=== PATIENT | female | born 1990 | race Caucasian/White ===

== ENCOUNTER 2019-05-08 14:14 | Observation (INO) | payer BC, SELFPAY ==
--- NOTE | ~2019-05-08 | XR_ITS ---
XR chest 2V DATE: 05/08/2019 15:46 INDICATION: Postoperative fever and pain. Cystoscopy yesterday. TECHNIQUE: AP and lateral views COMPARISON: 07/30/2018 2 view chest FINDINGS: Normal heart size. No hilar or mediastinal enlargement. No pulmonary infiltrate or consolid ation, pleural effusion or pulmonary vascular congestion or pneumothorax is detected. IMPRESSION: No active cardiopulmonary disease Reviewed, dictated and finalized at location A. ATION NURSE
--- NOTE | ~2019-05-08 | XR_ITS ---
EXAMINATION: XR abdomen/kub 1V EXAM DATE: 05/08/2019 18:02 INDICATION: Evaluate stent. TECHNIQUE: Frontal projection of the upper abdomen, frontal projection lower abdomen/pelvis for inter pretation. Comparison is made to prior examination from 05/07/2019. FINDINGS: There has been interval insertion of a right-sided double-J ureteral stent, projecting ove r expected position. Possible identification of right calyceal 4 mm stone, finding indicated. There i s bowel gas overlying the renal contours. Cholecystectomy clips. Nonobstructive bowel gas pattern. IMPRESSION: Right ureteral stent in position. Reviewed, dictated and finalized at location A. ACE MECHANIC HELPER
[2019-05-08 14:28] VITALS: BP 155/98; PULSE 133; RESP 19; TEMP 39.8; O2SAT 98
--- NOTE | 2019-05-08 14:52 | ED.ABDPAIN ---
HPI - Abdominal Pain General Chief Complaint: Abdominal Pain Stated Complaint: post op pain/fever Time Seen by Provider: 05/08/19 14:32 Source: patient and old records reviewed Mode of arrival: ambulatory Limitations: no limitations History of Present Illness HPI narrative: The pt is a 28 y/o female who presents to the ED c/o right flank pain. Pt states that the pain radiates to the ABD and right hip. Old records indicate pt has previous PMHx of kidney stones with extraction. Per old records, pt was diagnosed with a 2 mm right UPJ stone. Pt had a fever in the ER, so she received a gram of Ceftriaxone. Pt went to the OR soon after to receive a ureteral stent. Pt then received Bactrim and Oxycodone upon discharge from the OR. She states that she took Bactrim yesterday and today. She states that she experienced some vomiting yesteday. Pt states that she then began to experience the pain again after taking Bactrim today. Pt took Motrin and Oxycodone without relief. Pt reports chills, dysuria, rhinorrhea, and head pressure. She denies numbness/tingling, body aches, cough, CP, and vision changes. Pt notes that she takes medication for anxiety and HTN. Pt has previous history of cholecystectomy, shoulder repair, tonsillectomy, and myringotomy tubes. MD elicited complaint: abdominal pain Pertinent past history: kidney stones Pain Consistency: constant Location: R flank Radiation: other (Right hip, abdomen) Associated symptoms: vomiting, fever, chills and other (Rhinorrhea, head pressure) Treatments prior to arrival: NSAIDs (Motrin) and prescription analgesics (Oxycodone) Related Data Home Medications Medication Instructions Recorded Confirmed oxycodone 05/08/19 Allergies Allergy/AdvReac Type Severity Reaction Status Date / Time No Known Allergies Allergy Verified 05/08/19 14:31 Review of Systems Review of Systems: All systems reviewed & are unremarkable except as noted in HPI and below Constitutional: Constitutional: Reports chills and Reports fever(s) Eyes: Eyes: Denies change in vision ENT: Reports nasal discharge (Rhinorrhea) Cardiovascular: Cardiovascular: Denies chest pain Respiratory: Respiratory: Denies cough Gastrointestinal: Gastrointestinal: Reports vomiting Genitourinary: Genitourinary: Reports flank pain (Right) Musculoskeletal: Musculoskeletal: Denies myalgias Neurologic: Denies numbness, Denies tingling and Reports other (Head pressure) [facility] Past Medical History Medical History (Updated 05/08/19 @ 17:55 by Gary Hernandez MD) Anxiety Closed fracture of phalanx of right little finger Depression HTN (hypertension) Kidney stones Right arm fracture UTI (urinary tract infection) Surgical History Surgical History (Updated 05/08/19 @ 15:04 by José Miguel Landaverde) H/O shoulder surgery Right shoulder repair History of cholecystectomy History of extraction of renal calculus Hx of tonsillectomy Myringotomy tube status S/P ureteral stent placement Social History Social History (Updated 05/08/19 @ 15:03 by José Miguel Landaverde) Smoking status: Never smoker Gender identity (if verbalized by the patient): Female Comments PCP: Dr. Loomis Exam Narrative: Exam Narrative: GENERAL: Uncomfortable appearing, morbidly obese, and in mild distress. HEAD: Normocephalic, atraumatic. ENT: Mucous membranes moist. No pharyngeal erythema or tonsillar exudate, no postnasal drip noted. NECK: Supple. CHEST: Clear to auscultation. No respiratory distress. HEART: Tachycardic and regular. Normal peripheral pulses. ABDOMEN: Soft, mild right mid abdominal tenderness superior to the iliac crest and inferior to the rib cage without guarding, nondistended. No CVA tenderness. Back: No midline tenderness of thoracic or lumbar spine. No SI joint tenderness. No reproducible paraspinal muscular tenderness or spasm. EXTREMITIES: Normal range of motion. No edema. SKIN: Warm, dry, no rash. NEURO: Alert and oriented x3
[2019-05-08 15:26] LABS: Basophils Absolute Auto 0.1 K/mm3 (0.0-0.1); Basophils Percent Auto 0.8 % (0.2-1.2); Eosinophils Absolute Auto 0.1 K/mm3 (0-0.3); Eosinophils Percent Auto 0.8 % (0-4.4); Hemoglobin 13.1 g/dL (12.0-15.0); Immature Granulocyte Absolute 0.03 K/mm3 (0.00-0.031); Immature Granulocyte Percent A 0.3 % (0-0.5); Lymphocytes Absolute Auto 0.33 K/mm3 (0.9-3.2); Lymphocytes Percent Auto 3.1 % (18.3-44.2); Mean Corpuscular Hemoglobin 27.9 pg (26-34); Mean Corpuscular Volume 87.4 fl (80-100); Mean Platelet Volume 9.2 fl (7.4-10.4); Monocytes Absolute Auto 0.3 K/mm3 (0.1-0.6); Monocytes Percent Auto 2.8 % (2.6-8.5); Neutrophils Absolute Auto 9.8 K/mm3 (1.3-6.7); Neutrophils Percent Auto 92.2 % (45.5-73.1); Platelet Count Result 356 k/mm3 (150-375); Red Blood Count 4.69 M/mm3 (4.2-5.4); Red Cell Distribution Width 13.8 % (11.5-14.5); White Blood Count 10.7 K/mm3 (4.5-10.0)
[2019-05-08] MEDS: HYDROMORPHONE HCL 1 MG/ML INJ IV PUSH ×3 (15:32→19:51)
[2019-05-08] MEDS: ONDANSETRON INJ 4 MG/2 ML VIAL (15:33)
--- NOTE | 2019-05-08 15:33 | PC.NURSE ---
vrbo from ROBIN franco for zofran 4 mg ivp
[2019-05-08 15:36] LABS: Lactic Acid Reflex 2.2 mmol/L (0.7-2.1)
[2019-05-08 15:37] LABS: Blood Urea Nitrogen 13 mg/dL (7-17); Calcium 8.8 mg/dL (8.4-10.2); Carbon Dioxide 26 mmol/L (22-30); Chloride 100 mmol/L (98-107); Estimated Glomerular Filt Rate > 60; Glucose 106 mg/dL (65-105); Potassium 3.9 mmol/L (3.4-5.0); Sodium 136 mmol/L (137-145)
[2019-05-08 16:41] LABS: Add Urine Microscopic? YES; Appearance Urine Cloudy (Clear); Bacteria Urine Trace /hpf; Bilirubin Urine Negative (Negative); Blood Urine 3+ (Negative); Color Urine Red (Yellow); Glucose Urine UA 1+ mg/dL (Negative); Ketones Urine Negative (Negative); Leukocyte Esterase Ur Negative LEU/UL (Negative); Mucus Urine Heavy /lpf; Nitrate Urine Positive (Negative); Protein Urine 3+ mg/dL (Negative); RBC Urine >75 /hpf (0-2); Specific Grav Ur 1.024 (1.001-1.035); Squamous Epithelial Cell Urine Few /hpf (Few); WBC Urine 16-20 /hpf
[2019-05-08] MEDS: ONDANSETRON INJ 4 MG/2 ML VIAL IV PUSH ×2 (17:42→19:53)
[2019-05-08 18:24] LABS: Reflex Lactic Acid Yes or No Add Lactic
[2019-05-08 18:25] VITALS: BP 91/65; PULSE 110; RESP 16; TEMP 38.2; O2SAT 92
[2019-05-08] MEDS: SODIUM CHLORIDE 0.9% IV 1,000 ML 125 ML IV CONT (18:48)
--- NOTE | 2019-05-08 18:55 | ADMGEN ---
This patient, Cristina Pettit, was admitted to Medical Room 258-01. Patient/family oriented to hospital policies and general routines including ID bracelet, bed and alarms, visiting hours, pain management, procedures, bathroom and other care routines, personal items, smoking policy, room service/diet, and visiting hours. Valuables list has been completed. Information on how to activate the Rapid Response Team has been discussed. Patient/Family are encouraged to report perceived risks to care and to ask questions if they do not understand what they are told or what they should do.
[2019-05-08 18:58] VITALS: BP 106/67; PULSE 114; RESP 22; TEMP 36.2; O2SAT 94; BMI 63.4
[2019-05-08 19:35] LABS: Lactic Acid 1.7 mmol/L (0.7-2.1)
[2019-05-08] MEDS: ACETAMINOPHEN 325 MG TABLET 650 MG PO (21:06)
[2019-05-08 21:14] VITALS: BP 129/66; PULSE 74; RESP 16; TEMP 36.7; O2SAT 93
--- NOTE | 2019-05-08 21:57 | PM.IMHP ---
H&P: HPI History of Present Illness Chief complaint: Flank pain and fever. Narrative: Cristina Pettit is very pleasant 28-year-old female with history of kidney stones who presented to the emergency department earlier this afternoon via private vehicle from home for evaluation of right flank pain and fever. She was seen emergency department yesterday morning, May 07, 2019, with right flank pain that had been ongoing since at Friday. She was found to have a 2 millimeter right UPJ stone and is status post cystoscopy with ureteroscopy, stone extraction, and ureteral stent placement. She was able to be discharged home, and she seemed to be feeling a lot better last evening. When she woke this morning, she took her antibiotic and pain medication and within about 20 minutes she developed diffuse body aches, chills, and rigors. Temperature at that time was 97.1, but by the time she got to the emergency department is 103.6. She continues to have right sided pain and hematuria. She also notes nausea and emesis x2. At the time my evaluation, she is feeling somewhat better after receiving IV fluid rehydration. Her only complaint at this time is of a mild headache. Review of Systems Review of Systems: Narrative: Twelve systems were reviewed with pertinent positives and negatives as per HPI. She denies significant: Flu symptoms. No chest pain or shortness of breath. She is currently on her menstrual cycle. I am frequently has loose stools since having a cholecystectomy many years ago, and this is unchanged. She takes Seroquel for anxiety. Except as documented, all other systems were reviewed and are negative. [facility] Past Medical History Medical History (Updated 05/08/19 @ 22:02 by Ca Galindo PA-C) Anxiety Closed fracture of phalanx of right little finger Depression HTN (hypertension) Kidney stones Right arm fracture UTI (urinary tract infection) Surgical History Surgical History (Updated 05/08/19 @ 22:02 by Ca Galindo PA-C) H/O shoulder surgery Right shoulder repair History of cholecystectomy History of extraction of renal calculus Hx of tonsillectomy Myringotomy tube status S/P ureteral stent placement Family History Family History (Updated 05/08/19 @ 18:59 by Giorgio Morton RN) Sibling Asthma Father Diabetes mellitus Mother Hypertension Social History Social History (Updated 05/08/19 @ 22:00 by RADHA Keating Social History: The patient lives in [place] with her boyfriend. She designates her mother, Taylor, as her surrogate decision maker and she wishes to be a full code. She denies alcohol, tobacco, and drug use. Smoking status: Never smoker Alcohol intake: former Substance use: never Gender identity (if verbalized by the patient): Female Spiritual care concerns: No Agree to blood products: Yes Meds Home Medications and Allergies Home Medications Medication Instructions Recorded Confirmed Type amlodipine 10 mg PO HS 05/08/19 05/08/19 History oxycodone 5 mg PO Q6-8H PRN 05/08/19 05/08/19 History quetiapine 200 mg PO HS 05/08/19 05/08/19 History Allergies Allergy/AdvReac Type Severity Reaction Status Date / Time cefprozil Allergy Intermediate Muscle Pain Verified 05/08/19 19:00 Vital Signs Vital Signs - 24 hr 05/08/19 14:28 05/08/19 18:25 05/08/19 18:58 Temperature 103.6 F H 100.8 F H 97.1 F L Pulse Rate 133 H 110 H 114 H Respiratory Rate 19 16 22 H Blood Pressure 155/98 H 91/65 L 106/67 Pulse Oximetry 98 92 94 05/08/19 21:14 Temperature 98.1 F Pulse Rate 74 Respiratory Rate 16 Blood Pressure 129/66 Pulse Oximetry 93 Exam Narrative: Exam Narrative: General: A well-developed, well-nourished female sitting up in bed no acute distress. She is nontoxic in appearance. HEENT: PERRL, EOMI. Sclerae anicteric. Oral mucosa moist. Neck: Supple. Respiratory: Lungs are clear to auscultation bilaterally. Cardiovascular
[2019-05-08] MEDS: QUEtiapine FUMARATE 100 MG TABLET 200 MG PO (22:13)
[2019-05-09] MEDS: SODIUM CHLORIDE 0.9% IV 1,000 ML 125 ML IV CONT ×3 (05:04→21:04)
[2019-05-09 06:00] VITALS: BP 144/73; PULSE 100; RESP 16; TEMP 36.6; O2SAT 94
--- NOTE | 2019-05-09 07:23 | WPDURCON ---
Assessment and Plan Assessment and plan (1) Nephrolithiasis: Code(s): N20.0 - Calculus of kidney Status: Acute Assessment and Plan: Patient is s/p recent stone surgery, now admitted with fever spike to 103F. High yield differential includes atelectasis (based on timing and patient size, coupled with negative pre-op urine culture) and pyelonephritis. PLAN: -No acute urologic intervention -Ambulate & Incentive Spirometry -Continue antibiotics while awaiting urine and blood culture results -Stent plan per patient's primary urologist, Dr. Avila (2) Pain due to ureteral stent: Qualifiers: Encounter type: initial encounter Qualified Code(s): T83.84XA - Pain due to genitourinary prosthetic devices, implants and grafts, initial encounter Code(s): T83.84XA - Pain due to genitourinary prosthetic devices, implants and grafts, initial encounter Status: Acute Urology Consult Note HPI Date Seen: 05/09/19 Requesting Physician: Twila Pearson PA-C Primary Care Provider: Mariah Loomis MD Consult Narrative Narrative: Cristina Pettit is a 28 year old female with morbid obesity and nephrolithiasis who 05/07/2019 underwent cystoscopy, RIGHT ureteroscopy, stone extraction, stent placement by Dr. Avila. Her Urine Culture from that day has resulted as negative. She was sent home on Bactrim post-op. Since surgery she has had right flank pain, and yesterday her temperature climbed from 97 to 100.3 to 103.6, causing her to seek care at our ER. She denies chills or rigors; reports mild dysuria and right flank pain, though not severe. Cr 1.1 WBC 11K UA nit positive, RBC > WBC UCx Pending KUB confirms right stent in good position CXR without overt pulmonary pathology Review of Systems Review of Systems: All systems reviewed & are unremarkable except as noted in HPI and below PMFSH Past Medical History Medical History (Updated 05/09/19 @ 07:29 by José Miguel Choudhary MD) Anxiety Closed fracture of phalanx of right little finger Depression HTN (hypertension) Kidney stones Nephrolithiasis Right arm fracture UTI (urinary tract infection) Surgical History Surgical History (Updated 05/08/19 @ 22:02 by Ca Galindo PA-C) H/O shoulder surgery Right shoulder repair History of cholecystectomy History of extraction of renal calculus Hx of tonsillectomy Myringotomy tube status S/P ureteral stent placement Family History Family History (Updated 05/08/19 @ 18:59 by Giorgio Morton RN) Sibling Asthma Father Diabetes mellitus Mother Hypertension Social History Social History (Updated 05/08/19 @ 22:00 by Ca Galindo PA-C) Social History: The patient lives in [place] with her boyfriend. She designates her mother, Taylor, as her surrogate decision maker and she wishes to be a full code. She denies alcohol, tobacco, and drug use. Smoking status: Never smoker Alcohol intake: former Substance use: never Gender identity (if verbalized by the patient): Female Spiritual care concerns: No Agree to blood products: Yes Meds Home Medications and Allergies Home Medications Medication Instructions Recorded Confirmed Type amlodipine 10 mg PO HS 05/08/19 05/08/19 History oxycodone 5 mg PO Q6-8H PRN 05/08/19 05/08/19 History quetiapine 200 mg PO HS 05/08/19 05/08/19 History Allergies Allergy/AdvReac Type Severity Reaction Status Date / Time cefprozil Allergy Intermediate Muscle Pain Verified 05/08/19 19:00 Vital Signs Vital Signs - 24 hr 05/08/19 14:28 05/08/19 18:25 05/08/19 18:58 Temperature 39.8 C H 38.2 C H 36.2 C L Pulse Rate 133 H 110 H 114 H Respiratory Rate 19 16 22 H Blood Pressure 155/98 H 91/65 L 106/67 Pulse Oximetry 98 92 94 05/08/19 21:14 05/09/19 06:00 Temperature 36.7 C 36.6 C Pulse Rate 74 100 Respiratory Rate 16 16 Blood Pressure 129/66 144/73 H Pulse Oximetry 93 94 Exam Const: General: comfor
[2019-05-09 08:30] LABS: Blood Urea Nitrogen 14 mg/dL (7-17); Calcium 8.1 mg/dL (8.4-10.2); Carbon Dioxide 24 mmol/L (22-30); Chloride 99 mmol/L (98-107); Estimated CRCL calculation 171 ml/min; Estimated Glomerular Filt Rate > 60; Glucose 101 mg/dL (65-105); Potassium 3.9 mmol/L (3.4-5.0); Sodium 134 mmol/L (137-145)
[2019-05-09] MEDS: ACETAMINOPHEN 325 MG TABLET 650 MG PO ×2 (08:36→17:59)
[2019-05-09 08:46] LABS: Basophils Absolute Auto 0.1 K/mm3 (0.0-0.1); Basophils Percent Auto 0.7 % (0.2-1.2); Eosinophils Absolute Auto 0.7 K/mm3 (0-0.3); Eosinophils Percent Auto 8.4 % (0-4.4); Hemoglobin 12.8 g/dL (12.0-15.0); Immature Granulocyte Absolute 0.12 K/mm3 (0.00-0.031); Immature Granulocyte Percent A 1.4 % (0-0.5); Lymphocytes Absolute Auto 0.56 K/mm3 (0.9-3.2); Lymphocytes Percent Auto 6.5 % (18.3-44.2); Mean Corpuscular Hemoglobin 28.2 pg (26-34); Mean Corpuscular Volume 88.1 fl (80-100); Mean Platelet Volume 9.9 fl (7.4-10.4); Monocytes Absolute Auto 0.6 K/mm3 (0.1-0.6); Monocytes Percent Auto 6.8 % (2.6-8.5); Neutrophils Absolute Auto 6.6 K/mm3 (1.3-6.7); Neutrophils Percent Auto 76.2 % (45.5-73.1); Platelet Count Result 348 k/mm3 (150-375); Red Blood Count 4.54 M/mm3 (4.2-5.4); Red Cell Distribution Width 14.2 % (11.5-14.5); White Blood Count 8.7 K/mm3 (4.5-10.0)
--- NOTE | 2019-05-09 11:15 | PM.IMPN ---
Progress Note: A&P Assessment and Plan (1) Sepsis: Code(s): A41.9 - Sepsis, unspecified organism Status: Acute Assessment and Plan: Sepsis on arrival with tachycardia, fever, leukocytosis, and elevated lactic acid level. Today, vital signs were reviewed and are stable with normal leukocytosis. Blood cultures obtained and are pending. Will continue monitoring her vitals during admission. (2) Urinary tract infection: Code(s): N39.0 - Urinary tract infection, site not specified Status: Acute Assessment and Plan: Patient's urinalysis was normal but she also had just had a cystoscopy and stone extraction. She lists an allergy to cefprozil, noting diffuse muscle pain. She was given IV Ceftriaxone in the emergency department, and seems to be tolerating that just fine. Urine culture pending. She is feeling better at this time Will continue with treatment and monitoring symptoms. (3) History of removal of ureteral stent: Code(s): Z98.890 - Other specified postprocedural states Status: Acute Assessment and Plan: Status post cystoscopy with ureteroscopy, stone extraction, and right ureter stent placement 05/07/2019. She was seen by Dr. Choudhary Urology and they will continue following the patient while in the hospital and pending cultures. (4) HTN (hypertension): Code(s): I10 - Essential (primary) hypertension Status: Acute Assessment and Plan: Blood pressure today was 144/73. Slightly elevated but she is still receiving IV fluids. For now we will hold her amlodipine and monitor closely. Time Spent With Patient Time with patient: 25 - 35 minutes Subjective Date/time seen: 05/09/19 11:15 Interval history: The patient is a 28 year old woman with history of kidney stone 5 years ago s/p lithrotripsy and recent kidney stone diagnosed 05/07/2019 s/p cystoscopy with ureteroscopy, stone extraction and ureteral stent placement, who presented to the ER with continued right flank pain, fever, nausea and vomiting s/p procedure. Labs showed fever of 103.6?, BP 155/98, heart rate 133, respiratory rate 19, oxygen saturation 98% on room air. Labs showed leukocytosis of 10,700 with a left shift, slight hyponatremia of 136, lactic acidosis at 2.2 and a normal reflex at 1.7. Urinalysis shows red cloudy urine with 3+ protein, 3+ blood, positive nitrites, greater than 75 RBCs, WBCs 16-20. Chest x-ray showed no acute cardiopulmonary abnormality. Abdominal x-ray shows right ureteral stent in position. Patient's urine culture and blood cultures are pending. She was admitted into the hospital for acute sepsis, urinary tract infection and Urology was consulted due to recent procedure. Date of Service 05/09/2019: The patient is feeling better today. She has been having intermittent nausea since admission and her last episode of vomiting was earlier this morning. She was able to tolerate breakfast without any issues. She denies any more fevers or chills since arrival. She does have a throbbing headache which has been off and on since yesterday but denies any are as revision changes. She continues to have 5/10 right flank pain with radiation to right lower quadrant at this time. She denies any chest pain, shortness breath, cough, diarrhea, constipation, leg swelling, calf pain or any other symptoms at this time. Review of Systems Review of Systems: All systems reviewed & are unremarkable except as noted in HPI and below Exam Narrative: Exam Narrative: General: 28-year-old woman laying fla
[2019-05-09] MEDS: ONDANSETRON INJ 4 MG/2 ML VIAL IV PUSH ×2 (12:38→18:02)
[2019-05-09 14:00] VITALS: BP 136/79; PULSE 95; RESP 20; TEMP 37.1; O2SAT 99
[2019-05-09] MEDS: HYDROCORTISONE 1% 30 GM CREAM 1 APPLIC TOPICAL ×2 (17:46→21:05)
[2019-05-09 20:00] VITALS: PULSE 95; RESP 20; O2SAT 99
[2019-05-09] MEDS: QUEtiapine FUMARATE 100 MG TABLET 200 MG PO (21:23)
[2019-05-09 23:01] VITALS: BP 133/85; PULSE 91; RESP 18; TEMP 36.8; O2SAT 97
[2019-05-10] MEDS: SODIUM CHLORIDE 0.9% IV 1,000 ML 125 ML IV CONT (05:17)
[2019-05-10 06:15] VITALS: BP 152/89; PULSE 92; RESP 18; TEMP 36.7; O2SAT 98
--- NOTE | 2019-05-10 07:21 | WPDUROPN2 ---
Progress Note: A&P Assessment and Plan (1) Pain due to ureteral stent: Qualifiers: Encounter type: initial encounter Qualified Code(s): T83.84XA - Pain due to genitourinary prosthetic devices, implants and grafts, initial encounter Code(s): T83.84XA - Pain due to genitourinary prosthetic devices, implants and grafts, initial encounter Status: Acute (2) Nephrolithiasis: Code(s): N20.0 - Calculus of kidney Status: Acute Assessment and Plan: S/P ureteral stone extraction/stent placement 05/07/2019. Now tolerating stent well. Urine culture negative. Outpatient stent removal 7-10 days. No other intervention planned. Subjective Subjective Date/Time Seen: 05/10/19 07:21 Comfortable, no complaints. Review of Systems Cardiovascular: Cardiovascular: Denies chest pain, Denies lightheadedness, Denies palpitations and Denies dyspnea Respiratory: Respiratory: Denies dyspnea Gastrointestinal: Gastrointestinal: Denies diarrhea, Denies nausea and Denies vomiting Genitourinary: Genitourinary: Denies hematuria and Denies dysuria Endocrine: Endocrine: Denies palpitations Exam Const: General: no acute distress Resp: Effort & Inspection: normal respiratory effort GI: Inspection: non-distended GI Palp: No abdominal tenderness and No Guarding due to palpation present (GI) Auscultation: normal bowel sounds Objective Data Vital Signs Vital Signs: Vital Signs - 24 hr 05/09/19 14:00 05/09/19 20:00 05/09/19 23:01 Temperature 37.1 C 36.8 C Pulse Rate 95 95 91 Respiratory Rate 20 20 18 Blood Pressure 136/79 133/85 Pulse Oximetry 99 99 97 05/10/19 06:15 Temperature 36.7 C Pulse Rate 92 Respiratory Rate 18 Blood Pressure 152/89 H Pulse Oximetry 98 Intake/Output Intake/Output: Intake & Output 05/07/19 05/08/19 05/09/19 05/10/19 23:59 23:59 23:59 23:59 Intake Total 200 5870 1550 Output Total 2800 1000 Balance 200 3070 550 Meds/Results Medications: Active Medications Generic Name Dose Route Start Last Admin Trade Name Freq PRN Reason Stop Dose Admin Acetaminophen 650 mg 05/08/19 17:35 05/09/19 17:59 Tylenol Tablet PO 650 mg Q4H PRN Administration Mild Pain (1-3) or Fever Hydrocodone Bitart/Acetaminophen 2 tab 05/08/19 19:09 05/09/19 21:03 Kodak 5-325 Mg PO 2 tab Q4H PRN Administration Pain Rated 4-6 Diphenhydramine HCl 25 mg 05/09/19 17:16 05/10/19 05:16 Benadryl Cap PO 25 mg Q6H PRN Administration Itching if cream uneffective Hydrocortisone 1 applic 05/09/19 17:16 05/09/19 21:05 Hydrocortisone 1% Cream TOPICAL 1 applic Q12HR PRN Administration itching Sodium Chloride 1,000 mls @ 125 mls/hr 05/08/19 17:35 05/10/19 05:17 Normal Saline Iv IV CONT 125 mls/hr .Q8H YAMILETH Administration Ceftriaxone Sodium 2 gm in 100 mls @ 200 mls/hr 05/09/19 18:00 Rocephin 2 Gm/D5w 100 Ml IVPB QPM YAMILETH Ondansetron HCl 4 mg 05/08/19 17:35 05/09/19 18:02 Zofran Inj IV PUSH 4 mg Q4H PRN Administration Nausea Oxycodone HCl 5 mg 05/08/19 21:00 05/09/19 11:10 Roxicodone Ir Tablet PO 5 mg Q6-8H PRN Administration Pain Rated 7-10 Quetiapine Fumarate 200 mg 05/08/19 21:00 05/09/19 21:23 Seroquel PO 200 mg HS YAMILETH Administration Radiology Results: ITS Impressions Chest X-Ray 05/08/19 15:48 IMPRESSION: No active cardiopulmonary disease Abdomen X-Ray 05/08/19 18:10 IMPRESSION: Right ureteral stent in position. Labs Labs: Laboratory Results - last 24 hr 05/09/19 05/09/19 08:04 08:04 WBC 8.7 RBC 4.54 Hgb 12.8 Hct 40.0 MCV 88.1 MCH 28.2 MCHC 32.0 RDW 14.2 Plt Count 348 MPV 9.9 Immature Gran % (Auto) 1.4 H Neut % (Auto) 76.2 H Lymph % (Auto) 6.5 L Faulkner % (Auto) 6.8 Eos % (Auto) 8.4 H Baso % (Auto) 0.7 Lymph # (Auto) 0.56 L Faulkner # (Auto) 0.6 Eos # (Auto) 0.7 H
[2019-05-10 07:26] LABS: Basophils Absolute Auto 0.1 K/mm3 (0.0-0.1); Basophils Percent Auto 0.6 % (0.2-1.2); Eosinophils Absolute Auto 1.5 K/mm3 (0-0.3); Eosinophils Percent Auto 16.2 % (0-4.4); Hematocrit 37.6 % (37.0-47.0); Hemoglobin 12.3 g/dL (12.0-15.0); Immature Granulocyte Absolute 0.06 K/mm3 (0.00-0.031); Immature Granulocyte Percent A 0.7 % (0-0.5); Lymphocytes Absolute Auto 1.18 K/mm3 (0.9-3.2); Lymphocytes Percent Auto 13.1 % (18.3-44.2); Mean Corpuscular HGB Conc 32.7 g/dl (32-36); Mean Corpuscular Hemoglobin 28.2 pg (26-34); Mean Corpuscular Volume 86.2 fl (80-100); Mean Platelet Volume 9.2 fl (7.4-10.4); Monocytes Absolute Auto 0.7 K/mm3 (0.1-0.6); Monocytes Percent Auto 8.1 % (2.6-8.5); Neutrophils Absolute Auto 5.5 K/mm3 (1.3-6.7); Neutrophils Percent Auto 61.3 % (45.5-73.1); Platelet Count Result 308 k/mm3 (150-375); Red Blood Count 4.36 M/mm3 (4.2-5.4); Red Cell Distribution Width 14.2 % (11.5-14.5)
[2019-05-10 07:39] LABS: Blood Urea Nitrogen 8 mg/dL (7-17); Calcium 8.1 mg/dL (8.4-10.2); Carbon Dioxide 23 mmol/L (22-30); Chloride 103 mmol/L (98-107); Estimated CRCL calculation 232 ml/min; Estimated Glomerular Filt Rate > 60; Glucose 89 mg/dL (65-105); Potassium 4.1 mmol/L (3.4-5.0); Sodium 136 mmol/L (137-145)
[2019-05-10] MEDS: KETOROLAC 15 MG/ML VIAL (*BKC) IV PUSH (09:32)
[2019-05-10] MEDS: ONDANSETRON INJ 4 MG/2 ML VIAL IV PUSH (13:15)
[2019-05-10] MEDS: HYDROCORTISONE 1% 30 GM CREAM 1 APPLIC TOPICAL (13:15)
[2019-05-10 14:00] VITALS: BP 117/72; PULSE 91; RESP 18; TEMP 36.8; O2SAT 97
--- NOTE | 2019-05-10 16:26 | P.DS_ITS ---
DS: Diagnosis Admitting Diagnosis Admitting Diagnosis: Sepsis, unspecified organism Discharge Diagnosis (1) Sepsis: Code(s): A41.9 - Sepsis, unspecified organism Status: Acute Assessment and Plan: Sepsis on arrival with tachycardia, fever, leukocytosis, and elevated lactic acid level. * Today, vital signs were reviewed and are stable with normal leukocytosis. * She is feeling much better today. * Blood cultures obtained and are pending. We will continue monitoring her blood cultures over the next few days. * She is feeling well other than a headache, intermittent nausea, right flank pain. It is all improving with IV Toradol and Tylenol. * She believes going home with Tylenol, Ibuprofen and Zofran will help her to feel better over the next few days. * Since he believe you had a reaction to taking Bactrim, I talked to Dr. Avila and he recommends taking Macrobid twice daily for 5 days and follow- up in the office. * She understands and agrees with the plan. All questions answered. (2) Urinary tract infection: Code(s): N39.0 - Urinary tract infection, site not specified Status: Acute Assessment and Plan: Patient's urinalysis was normal but she also had just had a cystoscopy and stone extraction. * She lists an allergy to cefprozil, noting diffuse muscle pain. * She was given IV Ceftriaxone in the emergency department, and she has developed a rash on her back which is causing her itching, unsure if this is from the bed, sheets or from a reaction to the Ceftriaxone. The IV Ceftriaxone was discontinued since she does not have a UTI. * Start taking Macrobid for stent placement. * Urine culture was negative. (3) History of removal of ureteral stent: Code(s): Z98.890 - Other specified postprocedural states Status: Acute Assessment and Plan: * Status post cystoscopy with ureteroscopy, stone extraction, and right ureter stent placement 05/07/2019. * She was seen by Dr. Cortez Urology who reports the patient is stable for [facility]. * Follow up in 7 days for stent removal. (4) Headache: Code(s): R51 - Headache Status: Acute Assessment and Plan: She reports having a headache today, reported as diffuse with some associated nausea and photophobia She denies any improvement with Tylenol. I gave her a dose of Toradol with much improvement. She still reports a headache at this time, but it is improved. She believes she could go home to continue taking Tylenol, Ibuprofen and with some Zofran antiemetics. She is stable for discharge at this time. (5) HTN (hypertension): Code(s): I10 - Essential (primary) hypertension Status: Acute Assessment and Plan: * Blood pressure today was 117/72. Slightly elevated but she is still receiving IV fluids. * For now we will hold her amlodipine and monitor closely. DS: Summary Hospital Course Reason for hospitalization: The patient is a 28 year old woman with history of kidney stone 5 years ago s/p lithrotripsy and recent kidney stone diagnosed 05/07/2019 s/p cystoscopy with ureteroscopy, stone extracti
--- NOTE | 2019-05-10 16:26 | PM.DS ---
DS: Diagnosis Admitting Diagnosis Admitting Diagnosis: Sepsis, unspecified organism Discharge Diagnosis (1) Sepsis: Code(s): A41.9 - Sepsis, unspecified organism Status: Acute Assessment and Plan: Sepsis on arrival with tachycardia, fever, leukocytosis, and elevated lactic acid level. Today, vital signs were reviewed and are stable with normal leukocytosis. She is feeling much better today. Blood cultures obtained and are pending. We will continue monitoring her blood cultures over the next few days. She is feeling well other than a headache, intermittent nausea, right flank pain. It is all improving with IV Toradol and Tylenol. She believes going home with Tylenol, Ibuprofen and Zofran will help her to feel better over the next few days. Since he believe you had a reaction to taking Bactrim, I talked to Dr. Avila and he recommends taking Macrobid twice daily for 5 days and follow-up in the office. She understands and agrees with the plan. All questions answered. (2) Urinary tract infection: Code(s): N39.0 - Urinary tract infection, site not specified Status: Acute Assessment and Plan: Patient's urinalysis was normal but she also had just had a cystoscopy and stone extraction. She lists an allergy to cefprozil, noting diffuse muscle pain. She was given IV Ceftriaxone in the emergency department, and she has developed a rash on her back which is causing her itching, unsure if this is from the bed, sheets or from a reaction to the Ceftriaxone. The IV Ceftriaxone was discontinued since she does not have a UTI. Start taking Macrobid for stent placement. Urine culture was negative. (3) History of removal of ureteral stent: Code(s): Z98.890 - Other specified postprocedural states Status: Acute Assessment and Plan: Status post cystoscopy with ureteroscopy, stone extraction, and right ureter stent placement 05/07/2019. She was seen by Dr. [facility] who reports the patient is stable for discharged from his [facility]. Follow up in 7 days for stent removal. (4) Headache: Code(s): R51 - Headache Status: Acute Assessment and Plan: She reports having a headache today, reported as diffuse with some associated nausea and photophobia She denies any improvement with Tylenol. I gave her a dose of Toradol with much improvement. She still reports a headache at this time, but it is improved. She believes she could go home to continue taking Tylenol, Ibuprofen and with some Zofran antiemetics. She is stable for discharge at this time. (5) HTN (hypertension): Code(s): I10 - Essential (primary) hypertension Status: Acute Assessment and Plan: Blood pressure today was 117/72. Slightly elevated but she is still receiving IV fluids. For now we will hold her amlodipine and monitor closely. DS: Summary Hospital Course Reason for hospitalization: The patient is a 28 year old woman with history of kidney stone 5 years ago s/p lithrotripsy and recent kidney stone diagnosed 05/07/2019 s/p cystoscopy with ureteroscopy, stone extraction and ureteral stent placement, who presented to the ER with continued right flank pain, fever, nausea and vomiting s/p procedure. Labs showed fever of 103.6?, BP 155/98, heart rate 133, respiratory rate 19, oxygen saturation 98% on room air. Labs showed leukocytosis of 10,700 with a left shift, slight hyponatremia of 136, lactic acidosis at 2.2 and a normal reflex at 1.7. Urinalysis
== END 2019-05-10 18:03 | disposition home or self-care (01) ==
LOC: ANHED 17:49 → ANH2MED 17:53
PROVIDERS: Physician Assistant; Admitting Provider Internal Medicine; Emergency Provider Emergency Medicine; PCP Family Medicine; Visit Provider Family Medicine
DX: A41.9 Sepsis, unspecified organism (principal); T83.84XA Pain due to genitourinary prosthetic devices, implants and grafts, initial encounter; N20.0 Calculus of kidney; R21 Rash and other nonspecific skin eruption; R51 Headache; I10 Essential (primary) hypertension; E87.1 Hypo-osmolality and hyponatremia; E66.01 Morbid (severe) obesity due to excess calories; Z68.44 Body mass index [BMI] 60.0-69.9, adult; Z87.442 Personal history of urinary calculi; Z88.1 Allergy status to other antibiotic agents
CPT/HCPCS: 36415; 51701; 71046; 74018; 80048; 81001; 83605; 85025; 87040; 87086; 87804; 96361; 96365; 96374; 96375; 96376; 99285; A9270; G0378; J0131; J0696; J1170; J1885; J2405; J7030

== ENCOUNTER 2019-05-12 15:51 | Emergency (ER) | payer BC, SELFPAY ==
--- NOTE | ~2019-05-12 | XR_ITS ---
XR abdomen/kub 1V 05/12/2019 17:58 Indication: Confirm right ureteral stent in position Procedure: KUB Comparison: 05/08/2019 Findings: Right internal ureteral stent in expected position, unchanged. There are cholecystectomy cl ips. Bowel gas pattern is nonobstructive. Lung bases unremarkable. No abnormal calcifications. There are pelvic phleboliths. Impression: 1: Right internal ureteral stent in expected position. Reviewed, dictated and finalized at location A. IESEL TECHNOLOGY MANAGER Impression: 1: Right internal ureteral stent in expected position.
[2019-05-12 16:12] VITALS: BP 166/110; PULSE 96; RESP 16; TEMP 37.2; O2SAT 99
[2019-05-12] MEDS: MORPHINE SULFATE 4 MG/ML INJ IV PUSH (16:40)
[2019-05-12] MEDS: ONDANSETRON INJ 4 MG/2 ML VIAL IV PUSH (16:40)
[2019-05-12] MEDS: SODIUM CHLORIDE 0.9% IV 1,000 ML 999 ML IV CONT (16:43)
[2019-05-12 16:52] LABS: Basophils Absolute Auto 0.1 K/mm3 (0.0-0.1); Basophils Percent Auto 1.2 % (0.2-1.2); Eosinophils Absolute Auto 1.9 K/mm3 (0-0.3); Eosinophils Percent Auto 15.8 % (0-4.4); Hemoglobin 12.3 g/dL (12.0-15.0); Immature Granulocyte Absolute 0.52 K/mm3 (0.00-0.031); Immature Granulocyte Percent A 4.5 % (0-0.5); Lymphocytes Absolute Auto 2.02 K/mm3 (0.9-3.2); Lymphocytes Percent Auto 17.3 % (18.3-44.2); Mean Corpuscular HGB Conc 32.4 g/dl (32-36); Mean Corpuscular Volume 86.6 fl (80-100); Mean Platelet Volume 9.5 fl (7.4-10.4); Monocytes Absolute Auto 0.8 K/mm3 (0.1-0.6); Monocytes Percent Auto 6.8 % (2.6-8.5); Neutrophils Absolute Auto 6.4 K/mm3 (1.3-6.7); Neutrophils Percent Auto 54.4 % (45.5-73.1); Platelet Count Result 466 k/mm3 (150-375); Red Blood Count 4.39 M/mm3 (4.2-5.4); Red Cell Distribution Width 14.3 % (11.5-14.5); White Blood Count 11.7 K/mm3 (4.5-10.0)
[2019-05-12 16:56] LABS: Alanine Aminotransferase 110 U/L (4-35); Albumin Level 3.8 g/dL (3.5-5.1); Alkaline Phosphatase 120 U/L (38-126); Aspartate Amino Transferase 44 U/L (14-36); Bilirubin,Total 0.2 mg/dL (0.2-1.3); Blood Urea Nitrogen 17 mg/dL (7-17); Calcium 9.1 mg/dL (8.4-10.2); Carbon Dioxide 25 mmol/L (22-30); Chloride 102 mmol/L (98-107); Estimated CRCL calculation 166 ml/min; Estimated Glomerular Filt Rate > 60; Glucose 123 mg/dL (65-105); Potassium 4.2 mmol/L (3.4-5.0); Sodium 138 mmol/L (137-145)
--- NOTE | 2019-05-12 17:09 | ED.ABDPAIN ---
HPI - Abdominal Pain General Chief Complaint: Abdominal Pain Stated Complaint: right flank pain recent stones Time Seen by Provider: 05/12/19 16:07 Source: patient and RN notes reviewed Mode of arrival: ambulatory Limitations: no limitations History of Present Illness HPI narrative: Patient is a 28-year-old female who presents complaining of right flank pain and difficulty urinating x1 day. Patient reports pain has increased over the course of the day. She reports taking ibuprofen with little relief. She reports diagnosed with obstructed stone and and stent placement on Friday. She reports she was sent home. She returned on Friday with inability to urinate and pain. She reports being discharged Friday evening and pain was under control. She reports last evening pain started again. She denies nausea, vomiting or diarrhea. She denies other complaints. MD elicited complaint: flank pain Pertinent past history: kidney stones Related Data Home Medications Medication Instructions Recorded Confirmed amlodipine 10 mg PO HS 05/08/19 05/08/19 oxycodone 5 mg PO Q6-8H PRN 05/08/19 05/08/19 quetiapine 200 mg PO HS 05/08/19 05/08/19 Allergies Allergy/AdvReac Type Severity Reaction Status Date / Time cefprozil Allergy Intermediate Muscle Pain Verified 05/12/19 16:44 Review of Systems Review of Systems: Narrative: CONSTITUTIONAL: Denies fever, chills, or sweats. EYES: Denies visual changes, redness, or discharge. ENT: Denies rhinorrhea, congestion, sore throat, or otalgia. CARDIOVASCULAR: Denies chest pain, palpitations, or edema. RESPIRATORY: Denies cough or dyspnea. GASTROINTESTINAL: Denies abdominal pain, nausea, vomiting, or diarrhea. GENITOURINARY: Reports right flank pain that radiates to right groin, denies dysuria or hematuria, reports frequency and scanty amounts of urine. SKIN: Denies rash or itching. MUSCULOSKELETAL: Denies back pain, joint pain, or myalgia. NEUROLOGIC: Denies headache, numbness, dizziness, or weakness. PSYCHIATRIC: Denies anxiety or depression. [facility] Past Medical History Medical History Anxiety Closed fracture of phalanx of right little finger Depression HTN (hypertension) Kidney stones Morbid obesity with BMI of 50.0-59.9, adult Nephrolithiasis Right arm fracture UTI (urinary tract infection) Surgical History Surgical History H/O myringotomy H/O shoulder surgery Right shoulder repair History of cholecystectomy History of extraction of renal calculus Hx of tonsillectomy Myringotomy tube status S/P ureteral stent placement Family History Family History Sibling Asthma Father Diabetes mellitus Mother Hypertension Mother Hypertension Father Patient's father is in good health Grandparent Family history of malignant neoplasm of breast Family history of type 2 diabetes mellitus Other Family history of arthritis Family history of cardiovascular disease Family history of malignant neoplasm Family history of mental disorder Social History Social History Social History: The patient lives in [place] with her boyfriend. She designates her mother, Taylor, as her surrogate decision maker and she wishes to be a full code. She denies alcohol, tobacco, and drug use. Smoking status: Never smoker Second hand tobacco smoke exposure: No Alcohol intake: current Substance use: never Gender identity (if verbalized by the patient): Female Spiritual care concerns: No Agree to blood products: Yes Exam Narrative: Exam Narrative: GENERAL: Well-appearing, well-nourished, and in no acute distress. HEAD: Normocephalic, atraumatic. EYES: EOMI. No redness or drainage. Conjunctiva are normal. ENT: Mucous membranes pink and moist. CHEST: No respiratory dist
[2019-05-12] MEDS: KETOROLAC 30 MG/ML VIAL (*BKC) IV PUSH (18:43)
[2019-05-12 18:49] VITALS: BP 157/96; PULSE 71; RESP 18; O2SAT 97
[2019-05-12 19:03] VITALS: BP 137/88; PULSE 77; RESP 20; TEMP 37.1; O2SAT 98
== END 2019-05-12 19:06 | disposition home or self-care (01) ==
PROVIDERS: Emergency Provider Nurse Practitioner; PCP Urology
DX: T83.84XA Pain due to genitourinary prosthetic devices, implants and grafts, initial encounter (principal); F41.9 Anxiety disorder, unspecified; F32.9 Major depressive disorder, single episode, unspecified; I10 Essential (primary) hypertension; Z87.442 Personal history of urinary calculi; E66.9 Obesity, unspecified; Z68.43 Body mass index [BMI] 50.0-59.9, adult; Z87.440 Personal history of urinary (tract) infections
CPT/HCPCS: 36415; 74018; 80053; 85025; 96361; 96374; 96375; 99284; J1885; J2270; J2405; J7030

== ENCOUNTER 2021-02-24 11:17 | Inpatient (IN) | payer BC, SELFPAY ==
[2021-02-24] VITALS (20 sets, daily range): BP systolic 109–166; BP diastolic 67–91; PULSE 88–102; RESP 16–41; TEMP 35.7–39.5; O2SAT 88–97; BMI 72.1
--- NOTE | ~2021-02-24 | XR_ITS ---
EXAMINATION: XR chest 1V portable EXAM DATE: 03/03/2021 10:43 INDICATION: Intubated. TECHNIQUE: Portable AP frontal chest x-ray was obtained. Comparison is made to prior examination from 03/02/2021. FINDINGS: Endotracheal tube has retracted, is now above the thoracic inlet. This should be advanced a bout 6 cm. There is a left-sided PICC line in position. There is a nasogastric tube seen with tip col limated off the study, but below the left hemidiaphragm. Diffuse bilateral airspace disease, likely COVID pneumonia given history provided. Other infectious p rocess or edema also possible. There is cardiomegaly. No pneumothorax or sizable pleural effusion. Th ere are no osseous abnormalities identified. IMPRESSION: 1. Endotracheal tube above thoracic inlet, should be advanced about 6 cm. 2. Diffuse airspace disease unchanged. I discussed endotracheal tube position and recommendation with ICU nurse Kay at 03/03/2021 11:12 SAW OFFBEARER. Reviewed, dictated and finalized at location A. OFFBEARER
--- NOTE | ~2021-02-24 | XR_ITS ---
XR chest ET placement DATE: 03/02/2021 08:44 INDICATION: Intubation; confirm ET tube position TECHNIQUE: Portable AP supine views on 03/02/2021 at 0822 and 0825 hours COMPARISON: 02/28/2021 portable AP chest FINDINGS: At 0822 hours the endotracheal tube is in the proximal right mainstem bronchus. At 0825 hours endotracheal tube is 2.4 cm above mian in satisfactory position. Again noted are extensive diffuse patchy bilateral pulmonary infiltrates, increased in severity since 02/28/2021. IMPRESSION: ET tube in satisfactory position after repositioning Extensive patchy diffuse bilateral pulmonary infiltrates, increased in severity since 02/28/2021 Reviewed, dictated and finalized at Location A. Reviewed, dictated and finalized at location A. RANCE BILLER
--- NOTE | ~2021-02-24 | XR_ITS ---
EXAMINATION: XR chest 1V portable EXAM DATE: 03/03/2021 12:53 INDICATION: Endotracheal tube repositioned. TECHNIQUE: Portable AP frontal chest x-ray was obtained. Comparison is made to prior examination from earlier same date. FINDINGS: Endotracheal tube is above the thoracic inlet. Its balloon anchor should be deflated and t his should be advanced about 6 cm. There is a left-sided PICC line in position. There is a nasogastri c tube seen with tip collimated off the study, but below the left hemidiaphragm. Diffuse bilateral airspace disease, likely COVID pneumonia given history provided. Other infectious p rocess or edema also possible. There is cardiomegaly. No pneumothorax or sizable pleural effusion. Th ere are no osseous abnormalities identified. IMPRESSION: 1. Endotracheal tube still above thoracic inlet, should be advanced about 6 cm. 2. Diffuse airspace disease unchanged. I discussed endotracheal tube position and recommendation with ICU nurse Darrion at 03/03/2021 13:26 RESIDENTIAL TREATMENT STAFF. Reviewed, dictated and finalized at location A. DENTIAL TREATMENT STAFF IMPRESSION: 1. Endotracheal tube still above thoracic inlet, should be advanced about 6 cm . 2. Diffuse airspace disease unchanged. I discussed endotracheal tube position and recommendation with ICU nurse Darrion at 03/03/2021 13:26 RESIDENTIAL TREATMENT STAFF.
--- NOTE | ~2021-02-24 | XR_ITS ---
EXAMINATION: XR abdomen NG/feed tube insert DATE: 03/02/2021 08:44 INDICATION: Nasogastric tube placement. TECHNIQUE: A supine view of the abdomen was obtained. COMPARISON: Abdomen radiographs 05/12/19 FINDINGS: The lower abdomen is excluded. There are no dilated loops of bowel. The nasogastric tube ti p is in the stomach. Surgical clips in the right upper quadrant are likely from cholecystectomy. IMPRESSION: 1. Nasogastric tube tip in the stomach. Reviewed, dictated and finalized at location A. AL GOWN FITTER
--- NOTE | ~2021-02-24 | XR_ITS ---
EXAMINATION: XR chest 1V portable EXAM DATE: 03/03/2021 13:27 INDICATION: Endotracheal tube position. TECHNIQUE: Portable AP frontal chest x-ray was obtained. Comparison is made to prior examination from earlier same date. FINDINGS: Endotracheal tube has been advanced, is about 1 cm above the mian. There is a left-sided PICC line in position. There is a nasogastric tube seen with tip collimated off the study, but below the left hemidiaphragm. Diffuse bilateral airspace disease, likely COVID pneumonia given history provided. Other infectious p rocess or edema also possible. There is cardiomegaly. No pneumothorax or sizable pleural effusion. Th ere are no osseous abnormalities identified. IMPRESSION: 1. Endotracheal tube about 1 cm above mian. 2. Diffuse airspace disease unchanged. Reviewed, dictated and finalized at location A. EWER SALES
--- NOTE | ~2021-02-24 | CT_ITS ---
EXAMINATION: CTA chest PE protocol DATE: 02/24/2021 13:07 INDICATION: Shortness of breath. Chest pain. TECHNIQUE: Computed tomography angiography (CTA) of the chest was performed with 100 mL Omnipaque-350 intravenous contrast timed to evaluate the pulmonary arteries. Coronal maximum intensity projection 3D-reconstructions were created by the technologist. Automated exposure control and iterative reconst ruction technique were employed. The dose-length product was 911.88 mGy-cm. COMPARISON: CT abdomen and pelvis 05/07/2019 FINDINGS: There are scattered airspace and groundglass opacities in all lobes bilaterally. No pleural effusion. The heart size is normal. No pericardial effusion. There is mediastinal lymphadenopathy. T here is diffuse hepatic steatosis. There is no pulmonary embolus. There is thymic hyperplasia in the anterior mediastinum. There is mild thoracic spondylosis. IMPRESSION: 1. No pulmonary embolus. Sensitivity is mildly decreased by motion artifact and obesity. 2. Diffuse lung disease, consistent with COVID-19 pneumonia. 3. Mediastinal lymphadenopathy, likely reactive. Reviewed, dictated and finalized at location A. HANDISE ADJUSTMENT CLERK
--- NOTE | ~2021-02-24 | XR_ITS ---
EXAMINATION: XR chest 1V portable EXAM DATE: 02/27/2021 10:54 INDICATION: COVID positive. Dyspnea. TECHNIQUE: Portable AP frontal chest x-ray was obtained. Comparison is made to prior examination from 02/24/2021. FINDINGS: Diffuse bilateral pneumonia, mild progression compared to 3 days ago. There is no pneumotho rax suspected. There are no pleural effusions. The cardiomediastinal silhouette is prominent but magn ified on this AP technique. There are no osseous abnormalities identified. IMPRESSION: Diffuse pneumonia. Reviewed, dictated and finalized at location B. PUMPING STATION HELPER IMPRESSION: Diffuse pneumonia.
--- NOTE | ~2021-02-24 | XR_ITS ---
XR chest 1V portable DATE: 02/28/2021 05:51 INDICATION: Covid pneumonia TECHNIQUE: Portable upright AP views on 02/28/2021 at 0505 hours COMPARISON: 02/27/2021 portable AP chest FINDINGS: There are extensive diffuse patchy bilateral pulmonary infiltrates with some areas of worse radha and some areas of improvement since 02/27/2021. No pleural effusion or pneumothorax. Heart size is not optimally evaluated on AP projection because o f magnification. Included skeletal structures are unremarkable. IMPRESSION: Persistent extensive diffuse bilateral pulmonary infiltrates Reviewed, dictated and finalized at location A. TECH
--- NOTE | ~2021-02-24 | XR_ITS ---
EXAMINATION: XR chest 1V portable EXAM DATE: 03/05/2021 09:59 INDICATION: Respiratory failure. TECHNIQUE: Portable AP frontal chest x-ray was obtained. Comparison is made to prior examination from 03/04/2021, 03/03. FINDINGS: Endotracheal tube has been advanced, is about 2.5 cm above the mian. There is a left-side d PICC line in position. There is a nasogastric tube seen with tip collimated off the study, but belo w the left hemidiaphragm. Diffuse bilateral airspace disease, likely COVID pneumonia. Other infectious process or edema also po ssible. There is cardiomegaly. No pneumothorax or sizable pleural effusion. There are no osseous abno rmalities identified. No improvement compared to prior studies. IMPRESSION: 1. Tubes, line in position. 2. Diffuse pneumonia unchanged. Reviewed, dictated and finalized at location A. UCT TEST ENGINEER
--- NOTE | ~2021-02-24 | US_ITS ---
EXAMINATION: US abdomen limited EXAM DATE: 02/28/2021 10:12 INDICATION: Elevated Liver Enzymes TECHNIQUE: Multiple grayscale and Doppler images of the abdomen right upper quadrant were obtained (b y a technologist who performed the scan) and subsequently reviewed. There is no prior study for baldemar sandy. FINDINGS: The pancreatic head and body are normal in appearance. The pancreatic tail is not visualized. There is echogenic liver parenchyma, hepatic steatosis. There are no focal liver lesions identified. Th ere is no evidence of intrahepatic biliary duct dilation. Portal venous flow was seen in the hepatop edal, normal direction and has normal Doppler waveform. No right-sided hydronephrosis. Common bile duct measures 5 mm, which is normal. The gallbladder fossa is unremarkable. IMPRESSION: Hepatic steatosis. Reviewed, dictated and finalized at location B. [facility] C[facility] COORDINATOR IMPRESSION: Hepatic steatosis.
--- NOTE | ~2021-02-24 | XR_ITS ---
EXAMINATION: XR chest 1V portable DATE: 02/24/2021 12:17 INDICATION: Dyspnea. TECHNIQUE: A single frontal view of the chest was obtained. COMPARISON: Chest 2 views 05/08/2019, CT abdomen and pelvis 05/07/2019 FINDINGS: There are mild airspace opacities in the lower lung zones. No pleural effusion or pneumotho rax. The heart size is normal. IMPRESSION: 1. Mild airspace opacities in the lower lung zones, consistent with atelectasis versus pneumonia. Reviewed, dictated and finalized at location A. RAL HOME ASSOCIATE
--- NOTE | ~2021-02-24 | XR_ITS ---
EXAMINATION: XR chest 1V portable DATE: 03/06/2021 11:07 INDICATION: Intubation TECHNIQUE: frontal view of the chest was obtained. COMPARISON: Chest radiograph dated 03/05/2021 FINDINGS: Endotracheal tube tip 3.5 cm above the mian. Left upper extremity peripherally inserted central imer ous catheter (PICC) tip at the mid superior vena cava. Airspace opacities in the bilateral mid and lower lung zones. No pneumothorax or definitive pleural e ffusion. The cardiomediastinal silhouette is within normal limits for AP technique. IMPRESSION: 1. Endotracheal tube 3.5 cm above the mian. 2. Opacities in the bilateral mid and lower lung zones which could represent pneumonia, atelectasis, pulmonary edema or some combination thereof. Reviewed, dictated and finalized at location A. ARCH ASSOCIATE IMPRESSION: 1. Endotracheal tube 3.5 cm above the mian. 2. Opacities in the bilateral mid and lower lung zones which could represent pn eumonia, atelectasis, pulmonary edema or some combination thereof.
--- NOTE | ~2021-02-24 | XR_ITS ---
EXAMINATION: XR chest 1V portable EXAM DATE: 03/04/2021 10:51 INDICATION: Intubation, respiratory failure. COVID pneumonia. TECHNIQUE: Portable AP frontal chest x-ray was obtained. Compared to 03/03/2021. FINDINGS: Endotracheal tube has been advanced, is about 2.5 cm above the mian. There is a left-gwendolyn ed PICC line in position. There is a nasogastric tube seen with tip collimated off the study, but bel ow the left hemidiaphragm. Diffuse bilateral airspace disease, likely COVID pneumonia given history provided. Other infectious p rocess or edema also possible. There is cardiomegaly. No pneumothorax or sizable pleural effusion. Th ere are no osseous abnormalities identified. IMPRESSION: 1. Tubes in position. 2. Diffuse COVID pneumonia unchanged. Reviewed, dictated and finalized at location A. INE TOOL TECHNICIAN INSTRUCTOR
--- NOTE | 2021-02-24 12:00 | ECG_ITS ---
Measurements Intervals Cement Rate: 98 P: 47 [place]: 142 QRS: 53 QRSD: 98 T: 38 QT: 339 QTc: 433 Interpretive Statements SINUS RHYTHM BORDERLINE ST-T WAVE ABNORMALITY- INFERIOR LEADS BASELINE ARTIFACT- V3 NORMAL ECG Electronically Signed On 02-24-2021 15:15:24 LIVESTOCK PRODUCER by Matthew Bates D.O.
[2021-02-24] MEDS: IPRATROPIUM BR 0.02% INH SOLN 0.5 MG/2.5 ML VIAL INHALATION (12:13)
[2021-02-24] MEDS: ALBUTEROL SULFATE NEB 2.5 MG/0.5 ML INH 5 MG INHALATION (12:13)
[2021-02-24 12:21] LABS: Basophils Percent Auto 0.3 % (0.2-1.2); Hematocrit 42.3 % (37.0-47.0); Hemoglobin 13.7 g/dL (12.0-15.0); Immature Granulocyte Absolute 0.04 K/mm3 (0.00-0.031); Immature Granulocyte Percent A 0.6 % (0-0.5); Lymphocytes Absolute Auto 0.64 K/mm3 (0.9-3.2); Lymphocytes Percent Auto 9.2 % (18.3-44.2); Mean Corpuscular HGB Conc 32.4 g/dl (32-36); Mean Corpuscular Hemoglobin 29.1 pg (26-34); Mean Corpuscular Volume 89.8 fl (80-100); Mean Platelet Volume 9.3 fl (7.4-10.4); Monocytes Absolute Auto 0.5 K/mm3 (0.1-0.6); Monocytes Percent Auto 6.8 % (2.6-8.5); Neutrophils Absolute Auto 5.8 K/mm3 (1.3-6.7); Neutrophils Percent Auto 83.1 % (45.5-73.1); Platelet Count Result 230 k/mm3 (150-375); Red Blood Count 4.71 M/mm3 (4.2-5.4); Red Cell Distribution Width 14.4 % (11.5-14.5)
[2021-02-24] MEDS: predniSONE 20 MG TABLET 60 MG PO (12:24)
[2021-02-24] MEDS: ONDANSETRON INJ 4 MG/2 ML VIAL IV PUSH (12:25)
[2021-02-24] MEDS: SODIUM CHLORIDE 0.9% IV 1,000 ML 999 ML IV CONT (12:26)
[2021-02-24 12:30] LABS: Lactic Acid Reflex 0.8 mmol/L (0.7-2.1)
[2021-02-24 12:31] LABS: Alanine Aminotransferase 104 U/L (4-35); Albumin Level 3.8 g/dL (3.5-5.1); Alkaline Phosphatase 123 U/L (38-126); Anion Gap 8 mmol/L (8-16); Aspartate Amino Transferase 83 U/L (14-36); Bilirubin,Total 0.2 mg/dL (0.2-1.3); Blood Urea Nitrogen 13 mg/dL (7-17); Calcium 8.2 mg/dL (8.4-10.2); Carbon Dioxide 27 mmol/L (22-30); Chloride 103 mmol/L (98-107); Estimated CRCL calculation 167 ml/min; Estimated Glomerular Filt Rate > 60; Glucose 99 mg/dL (65-110); Potassium 4.1 mmol/L (3.4-5.0); Sodium 138 mmol/L (137-145)
--- NOTE | 2021-02-24 12:43 | ED.SOB ---
HPI - SOB/Dyspnea General Chief Complaint: Shortness of Breath/Dyspnea Stated Complaint: covid +, SOB Time Seen by Provider: 02/24/21 11:51 Source: patient History of Present Illness HPI Narrative: Patient presents with shortness of breath. Patient reports she was recently exposed to a friend who tested positive for Covid shortly after she did cough congestion and shortness of breath to go home Covid test and it was positive. Her symptoms have worsened over the past couple days so she came to the ER to be evaluated. She reports difficulty breathing and diffuse sharp chest pain that exacerbated by cough and deep inspiration. She reports fevers at home she denies nausea vomiting or diarrhea she denies any abdominal pain. Patient thinks she has a history of asthma as her mom and sister have asthma and she uses inhalers from time to time which helped out with intermittent shortness of breath Related Data Allergies Allergy/AdvReac Type Severity Reaction Status Date / Time cefprozil Allergy Intermediate Muscle Pain Verified 02/24/21 16:24 Sulfa (Sulfonamide Allergy Anaphylaxis Verified 02/24/21 16:24 Antibiotics) Review of Systems Review of Systems: CONSTITUTIONAL: Patient reports fevers and chills at home EYES: Denies visual changes, redness, or discharge. ENT: Denies rhinorrhea, congestion, sore throat, or otalgia. CARDIOVASCULAR: Denies palpitations, or edema. RESPIRATORY: Patient reports shortness of breath and cough GASTROINTESTINAL: Denies abdominal pain, nausea, vomiting, or diarrhea. GENITOURINARY: Denies dysuria or hematuria. SKIN: Denies rash or itching. MUSCULOSKELETAL: Denies back pain, joint pain, or myalgia. NEUROLOGIC: Denies headache, numbness, dizziness, or weakness. PSYCHIATRIC: Denies anxiety or depression. All systems reviewed & are unremarkable except as noted in HPI and below PMFSH Past Medical History Medical History (Updated 02/24/21 @ 14:50 by Ca Galindo PA-C) Anxiety Closed fracture of phalanx of right little finger Depression Hypertension Kidney stones Right arm fracture Surgical History Surgical History (Updated 02/24/21 @ 14:48 by Ca Galindo PA-C) History of arthroscopy of right shoulder History of cholecystectomy History of cystoscopy History of extraction of renal calculus History of myringotomy History of tonsillectomy History of ureter stent Family History Family History (Updated 02/24/21 @ 16:17 by Brea Zhong RN) Sibling Asthma Father Diabetes mellitus Mother Hypertension Family history of arthritis Family history of cardiovascular disease Family history of malignant neoplasm Family history of mental disorder Mother No problems noted. Father Patient's father is in good health Grandparent Family history of malignant neoplasm of breast Family history of type 2 diabetes mellitus Social History Social History (Updated 02/24/21 @ 14:49 by Ca Galindo PA-C) Social History: Surrogate decision maker: Taylor Pettit, mother. Code status: Full code. Smoking status: Never smoker Second hand tobacco smoke exposure: No Alcohol intake: never Substance use: never Additional living arrangements comments: The patient lives in [facility]. Spiritual care concerns: No Exam Narrative: GENERAL: Well-appearing, well-nourished, and in no acute distress. HEAD: Normocephalic, atraumatic. EYES: PERRLA and EOMI. ENT: Nares clear, no rhinorrhea or epistaxis. Mucous membranes moist. NECK: Supple. No masses. No JVD CHEST: Clear to auscultation. No respiratory distress. No wheezes rales or rhonchi HEART: Regular rate and rhythm. No murmur heard. Normal peripheral pulses. ABDOMEN: Soft, nontender, nondistended, normal active bowel sounds. EXTREMITIES: Normal range of motion. No edema. SKIN: Warm, dry, no rash. NEURO: No focal deficits. Alert and oriented x3. PSYCH: Normal mood and affect. Course Reevaluation(s)
--- NOTE | 2021-02-24 13:00 | PC.NURSE ---
Dr. Wyman notified of SpO2 88-90, oxygen applied at 2l/min NC.
[2021-02-24] MEDS: KETOROLAC 30 MG/ML VIAL (*BKC) IV PUSH (14:36)
[2021-02-24 15:00] LABS: INR 1.1; Prothrombin Time 13.7 Seconds (11.1-14.7)
--- NOTE | 2021-02-24 15:00 | PM.IMHP ---
H&P: HPI History of Present Illness Date/Time: 02/24/21 15:00 Chief Complaint: Shortness of breath. Narrative: This is a 30-year-old female with hypertension who presented to the emergency department earlier today from home for evaluation of shortness of breath. She has not been feeling well since Friday with multiple symptoms to include cough productive of clear phlegm, congestion, shortness of breath, and fever up to nearly 103? F. She was exposed to COVID his last weekend and tested positive for the same on a home kit two days ago on . She has been taking Tylenol and ibuprofen as needed for her aches and fever. Unfortunately she continues to have high fevers and shortness of breath and thus she came in today for evaluation. CTA of the chest showed diffuse lung disease consistent with COVID pneumonia and she is being admitted in this setting. At the time my evaluation she is requiring approximately 2 L nasal cannula and reports feeling somewhat better with the oxygen. She denies anosmia, dysgeusia, odynophagia, chest pain, pleuritic pain, vomiting, and diarrhea. The patient is unvaccinated for COVID. Review of Systems Review of Systems: Twelve systems were reviewed. Except as documented HPI all other systems were reviewed and are negative. [facility] Past Medical History Medical History Anxiety Closed fracture of phalanx of right little finger Depression Hypertension Kidney stones Right arm fracture Surgical History Surgical History (Updated 02/24/21 @ 14:48 by Ca Galindo PA-C) History of arthroscopy of right shoulder History of cholecystectomy History of cystoscopy History of extraction of renal calculus History of myringotomy History of tonsillectomy History of ureter stent Family History Family History Sibling Asthma Father Diabetes mellitus Mother Hypertension Family history of arthritis Family history of cardiovascular disease Family history of malignant neoplasm Family history of mental disorder Mother No problems noted. Father Patient's father is in good health Grandparent Family history of malignant neoplasm of breast Family history of type 2 diabetes mellitus Social History Social History (Updated 02/24/21 @ 21:44 by Ca Galindo PA-C) Social History: Surrogate decision maker: Taylor Pettit, mother. Code status: Full code. Smoking status: Never smoker Second hand tobacco smoke exposure: No Alcohol intake: never Substance use: never Additional living arrangements comments: The patient lives in [place] with her boyfriend. Additional occupation/education comments: Works for an [employer]. Meds Home Medications and Allergies Home Medications Medication Instructions Recorded Confirmed Type amlodipine 10 mg tablet 10 mg PO HS #90 tablet 10/19/20 02/24/21 Rx quetiapine 100 mg tablet 200 mg PO HS #14 tablet 10/27/20 02/24/21 Rx Allergies Allergy/AdvReac Type Severity Reaction Status Date / Time cefprozil Allergy Intermediate Muscle Pain Verified 02/24/21 16:24 Sulfa (Sulfonamide Allergy Anaphylaxis Verified 02/24/21 16:24 Antibiotics) Vital Signs Vital Signs - 24 hr 02/24/21 11:27 02/24/21 11:32 02/24/21 11:34 Temperature 103.1 F H Pulse Rate 99 95 95 Respiratory Rate 39 H 37 H 24 H Blood Pressure 164/87 H 166/89 H 166/89 H Pulse Oximetry 92 93 94 02/24/21 11:47 02/24/21 12:02 02/24/21 12:16 Temperature Pulse Rate 95 99 97 Respiratory Rate 32 H 30 H 29 H Blood Pressure 146/80 H 134/82 109/86 Pulse Oximetry 93 94 93 02/24/21 12:17 02/24/21 12:21 02/24/21 12:31 Temperature Pulse Rate 97 99 98 Respiratory Rate 30 H 17 41 H Blood Pressure 138/84 Pulse Oximetry 92 02/24/21 12:46 02/24/21 12:55 02/24/21 13:33 Temperature 100.6 F H Pulse Rate 102 H 97 Respiratory Ra
[2021-02-24] MEDS: REMDESIVIR 200 MG/NS 250 ML 200 MG/250 ML BAG 250 MG IVPB (15:51)
--- NOTE | 2021-02-24 16:11 | ADMGEN ---
This patient, Cristina Pettit, was admitted to [facility] Surg Room 316-01. Patient/family oriented to hospital policies and general routines including ID bracelet, bed and alarms, visiting hours, pain management, procedures, bathroom and other care routines, personal items, smoking policy, room service/diet, and visiting hours. Information on how to activate the Rapid Response Team has been discussed. Patient/Family are encouraged to report perceived risks to care and to ask questions if they do not understand what they are told or what they should do.
[2021-02-24] MEDS: SODIUM CHLORIDE 0.9% IV 1,000 ML 125 ML IV CONT (16:52)
[2021-02-24] MEDS: QUEtiapine FUMARATE 100 MG TABLET 200 MG PO (23:07)
[2021-02-24] MEDS: amLODIPine BESYLATE 5 MG TABLET 10 MG PO (23:07)
[2021-02-24] MEDS: guaiFENesin 12 HR 600 MG TABCR PO (23:07)
[2021-02-25] VITALS (11 sets, daily range): BP systolic 131–169; BP diastolic 80–100; PULSE 76–89; RESP 16–21; TEMP 35.7–36.6; O2SAT 85–96
[2021-02-25] MEDS: ALBUTEROL SULFATE (*SP) INHALER 2 PUFF INHALATION ×3 (01:55→22:00)
[2021-02-25 06:57] LABS: Hematocrit 41.7 % (37.0-47.0); Hemoglobin 13.7 g/dL (12.0-15.0); Mean Corpuscular HGB Conc 32.9 g/dl (32-36); Mean Corpuscular Hemoglobin 28.7 pg (26-34); Mean Corpuscular Volume 87.4 fl (80-100); Mean Platelet Volume 9.6 fl (7.4-10.4); Platelet Count Result 229 k/mm3 (150-375); Red Blood Count 4.77 M/mm3 (4.2-5.4); Red Cell Distribution Width 14.1 % (11.5-14.5); White Blood Count 5.2 K/mm3 (4.5-10.0)
[2021-02-25 06:59] LABS: Alanine Aminotransferase 88 U/L (4-35); Albumin Level 3.6 g/dL (3.5-5.1); Alkaline Phosphatase 99 U/L (38-126); Anion Gap 9 mmol/L (8-16); Aspartate Amino Transferase 63 U/L (14-36); Bilirubin,Total 0.2 mg/dL (0.2-1.3); Blood Urea Nitrogen 10 mg/dL (7-17); CRP 4.8 mg/dL (<1.0); Calcium 7.6 mg/dL (8.4-10.2); Carbon Dioxide 25 mmol/L (22-30); Chloride 105 mmol/L (98-107); Estimated CRCL calculation 256 ml/min; Estimated Glomerular Filt Rate > 60; Glucose 97 mg/dL (65-110); Lactate Dehydrogenase 771 U/L (313-618); Magnesium 1.9 mg/dL (1.6-2.3); Potassium 3.9 mmol/L (3.4-5.0); Sodium 139 mmol/L (137-145)
[2021-02-25 07:49] LABS: D Dimer 0.48 ug/mL (<0.48)
[2021-02-25 07:52] LABS: Prothrombin Time 13.4 Seconds (11.1-14.7)
[2021-02-25] MEDS: DEXAMETHASONE 2 MG TABLET 6 MG PO (08:32)
[2021-02-25] MEDS: guaiFENesin 12 HR 600 MG TABCR PO ×2 (08:32→20:27)
[2021-02-25] MEDS: ENOXAPARIN 40 MG/0.4 ML SYRINGE SUB-Q (08:32)
[2021-02-25] MEDS: REMDESIVIR 100 MG/NS 250 ML 100 MG/250 ML BAG 250 MG IVPB (09:34)
--- NOTE | 2021-02-25 12:37 | PM.IMPN ---
Progress Note: A&P Assessment and Plan (1) Pneumonia: Code(s): J18.9 - Pneumonia, unspecified organism Status: Acute Assessment and Plan: Chest x-ray shows diffuse pneumonia, most likely COVID pneumonia as she tested positive for COVID on a home kit several days ago. Continue with levofloxacin, pending confirmation of COVID-19. Sputum culture ordered though cough is nonproductive. Albuterol MDI available as needed. Mucinex and Cornet ordered to help mobilize secretions. Fever resolved today. (2) Suspected COVID-19 virus infection: Code(s): Z20.822 - Contact with and (suspected) exposure to COVID-19 Status: Acute Assessment and Plan: SHe reports exposure to COVID-19 and has not been vaccinated against COVID. Continue dexamethasone and remdesivir given high suspicion for COVID-19 as above. Continue isolation precautions pending SARS-CoV-2 PCR testing. Trend inflammatory markers. (3) Hypoxia: Code(s): R09.02 - Hypoxemia Status: Acute Assessment and Plan: Noted to be hypoxic down to 88% on presentation. She has required up to 2 L supplemental O2 per nasal cannula. She has been weaned to 1 L and is maintaining adequate O2 sats. Wean to goal spO2 92% or above. (4) Hypertension: Code(s): I10 - Essential (primary) hypertension Status: Acute Assessment and Plan: Blood pressures were reviewed and they are reasonably well controlled. Last BP 147/86. Continue amlodipine and monitor daily. Subjective Date/time seen: 02/25/21 12:37 Interval history: Date of service: 02/25/2021 Cristina Pettit is a 30-year-old female with a history of hypertension, anxiety, depression who is seen in follow-up for pneumonia, suspected secondary to COVID-19. She is starting to feel better today. Her shortness of breath has improved. She is still coughing intermittently but denies productive cough. Denies fevers or chills today. No chest pain or palpitations. She has not had any fevers today. Denies chills or sweats. No abdominal pain. She is eating well. She does note some variations in her sense of smell. She denies diarrhea. She had a regular bowel movement this morning. Denies any urinary symptoms. No nausea or vomiting. She is tolerating her diet. Denies myalgias or arthralgias. She is in good spirits. Review of Systems Review of Systems: All systems reviewed & are unremarkable except as noted in HPI and below Exam Narrative: Ms. Pettit is an obese, well-appearing 30-year-old female who is sitting up in bed. She appears comfortable and is in NARD. Neuro: awake, alert and oriented x4, speech clear, no focal neuro deficits noted HEENMT: normocephalic, atraumatic, EOMI, sclerae anicteric, moist oral mucosa Neck: supple, no lymphadenopathy Respiratory: Diminished breath sounds bilaterally, nonlabored breathing, able to speak in complete sentences Cardio: regular rate, regular rhythm with S1-S2 Abdomen: nondistended, normoactive bowel sounds, soft, nontender to palpation Extremities: Trace edema, DP pulses 2+ bilaterally Skin: no rashes or lesions, warm and dry Psych: appropriate mood and affect, judgment and insight intact Objective Data Vital Signs Vital Signs: Vital Signs - 24 hr 02/24/21 12:46 02/24/21 12:55 02/24/21 13:33 Temperature 100.6 F H Pulse Rate 102 H 97 Respiratory Rate 33 H 24 H Blood Pressure 166/91 H 134/69 Pulse Oximetry 88 L 90 02/24/21 13:46 02/24/21 14:15 02/24/21 14:31 Temperature Pulse Rate 93 97 95 Respiratory Rate 22 H 29 H 34 H Blood Pressure 124/67 146/83 H Pulse Oximetry 96 91 95 02/24/21 15:16 02/24/21 15:40 02/24/21 15:46 Temperature 99.1 F 99.2 F Pulse Rate 95 95 93 Respiratory Rate 30 H 28 H 24 H Blood Pressure 154/80 H 143/83 H 135/82 Pulse Oximetry 94 96 96 02/24/21 16:13 02/24/21 20:00 02/25/21 00:00 Temperature 98.9 F 96.3 F L 96.7 F L Pulse Rate 88 88 88 Respir
[2021-02-25] MEDS: QUEtiapine FUMARATE 100 MG TABLET 200 MG PO (20:27)
[2021-02-25] MEDS: amLODIPine BESYLATE 5 MG TABLET 10 MG PO (20:27)
[2021-02-25] MEDS: ZOLPIDEM TARTRATE (*CRX) 5 MG TABLET PO (23:38)
[2021-02-26] VITALS (10 sets, daily range): BP systolic 112–153; BP diastolic 66–89; PULSE 78–96; RESP 16–18; TEMP 36.3–37.6; O2SAT 90–93
[2021-02-26 07:01] LABS: Alanine Aminotransferase 81 U/L (4-35); Albumin Level 3.7 g/dL (3.5-5.1); Alkaline Phosphatase 102 U/L (38-126); Anion Gap 8 mmol/L (8-16); Aspartate Amino Transferase 66 U/L (14-36); Bilirubin,Total 0.3 mg/dL (0.2-1.3); Blood Urea Nitrogen 9 mg/dL (7-17); Calcium 8.1 mg/dL (8.4-10.2); Carbon Dioxide 29 mmol/L (22-30); Chloride 102 mmol/L (98-107); Estimated CRCL calculation 209 ml/min; Estimated Glomerular Filt Rate > 60; Glucose 105 mg/dL (65-110); Sodium 139 mmol/L (137-145)
[2021-02-26 07:43] LABS: INR 1.1; Prothrombin Time 13.9 Seconds (11.1-14.7)
[2021-02-26] MEDS: guaiFENesin 12 HR 600 MG TABCR PO ×2 (08:57→22:13)
[2021-02-26] MEDS: DEXAMETHASONE 2 MG TABLET 6 MG PO (08:57)
[2021-02-26] MEDS: ENOXAPARIN 40 MG/0.4 ML SYRINGE SUB-Q (08:57)
[2021-02-26] MEDS: REMDESIVIR 100 MG/NS 250 ML 100 MG/250 ML BAG 250 MG IVPB (08:58)
[2021-02-26] MEDS: ALBUTEROL SULFATE (*SP) INHALER 2 PUFF INHALATION ×2 (11:14→18:42)
--- NOTE | 2021-02-26 14:32 | PM.IMPN ---
Progress Note: A&P Assessment and Plan (1) Pneumonia: Code(s): J18.9 - Pneumonia, unspecified organism Status: Acute Assessment and Plan: Chest x-ray shows diffuse pneumonia, most likely COVID pneumonia as she tested positive for COVID on a home kit several days ago. Continue with levofloxacin, pending confirmation of COVID-19. Sputum culture ordered though cough is nonproductive. Albuterol MDI available as needed. Mucinex and Cornet ordered to help mobilize secretions. Febrile Tmax 103.1?, fever has resolved. (2) Suspected COVID-19 virus infection: Code(s): Z20.822 - Contact with and (suspected) exposure to COVID-19 Status: Acute Assessment and Plan: She reports exposure to COVID-19 and has not been vaccinated against COVID. Continue dexamethasone and remdesivir given high suspicion for COVID-19 as above. Continue isolation precautions pending SARS-CoV-2 PCR testing. Trend inflammatory markers. Will discontinue antibiotics if COVID-19 testing is positive as secondary bacterial infection is unlikely. Noted increased O2 requirements today. Consider addition of baricitinib if continued progression of O2 requirements (3) Hypoxia: Code(s): R09.02 - Hypoxemia Status: Acute Assessment and Plan: Noted to be hypoxic down to 88% on presentation. She has required up to 3 L supplemental O2 per nasal cannula. Continue supplemental O2 as needed with goal SpO2 92% or above (4) Hypertension: Code(s): I10 - Essential (primary) hypertension Status: Acute Assessment and Plan: Blood pressures were reviewed and they are reasonably well controlled. Last BP 153/82. Continue amlodipine and monitor daily. Subjective Date/time seen: 02/26/21 14:32 Interval history: Date of service: 02/26/2021 Cristina Pettit is a pleasant 30-year-old female with a history of hypertension, anxiety, depression who is seen in follow-up for pneumonia, suspected secondary to COVID-19. She is feeling okay today. She has been having coughing fits throughout the day. Denies productive cough. She stated that she had improvement after having a hot tea with honey. She does endorse shortness of breath and dyspnea on exertion, though she has been able to walk around her room and get to the bathroom independently. She denies nausea, vomiting, fever, or chills. Denies dizziness, lightheadedness, weakness. No chest pain or palpitations. No abdominal pain. Appetite has been good. No dizziness, lightheadedness, or weakness. Review of Systems Review of Systems: All systems reviewed & are unremarkable except as noted in HPI and below Exam Narrative: Ms. Pettit is an obese, well-appearing 30-year-old female who is sitting up in bed. She appears comfortable and is in NARD. Neuro: awake, alert and oriented x4, speech clear, no focal neuro deficits noted HEENMT: normocephalic, atraumatic, EOMI, sclerae anicteric, moist oral mucosa Neck: supple, no lymphadenopathy Respiratory: Diminished breath sounds bilaterally, nonlabored breathing, able to speak in complete sentences Cardio: regular rate, regular rhythm with S1-S2 Abdomen: nondistended, normoactive bowel sounds, soft, nontender to palpation Extremities: Trace edema, DP pulses 2+ bilaterally Skin: no rashes or lesions, warm and dry Psych: appropriate mood and affect, judgment and insight intact Objective Data Vital Signs Vital Signs: Vital Signs - 24 hr 02/25/21 16:00 02/25/21 20:00 02/25/21 20:09 Temperature 97.5 F L 97.8 F Pulse Rate 86 85 Respiratory Rate 21 H 18 Blood Pressure 133/80 169/100 H Pulse Oximetry 91 91 94 02/25/21 20:35 02/25/21 20:40 02/25/21 22:00 Temperature 97.8 F Pulse Rate 85 Respiratory Rate 18 Blood Pressure 169/100 H Pulse Oximetry 85 L 92 91 02/26/21 00:00 02/26/21 04:00 02/26/21 05:59 Temperature 97.4 F L 97.6 F 97.6 F Pulse Rate 78 86 86 Respiratory Rate 18 18
[2021-02-26 18:23] LABS: SARS-CoV-2 RNA PCR Positive
[2021-02-26] MEDS: QUEtiapine FUMARATE 100 MG TABLET 200 MG PO (22:13)
[2021-02-26] MEDS: amLODIPine BESYLATE 5 MG TABLET 10 MG PO (22:13)
[2021-02-27] VITALS (18 sets, daily range): BP systolic 107–147; BP diastolic 57–84; PULSE 68–92; RESP 16–20; TEMP 36.2–36.6; O2SAT 85–96
[2021-02-27] MEDS: ZOLPIDEM TARTRATE (*CRX) 5 MG TABLET PO (00:19)
[2021-02-27 07:32] LABS: Hematocrit 42.6 % (37.0-47.0); Hemoglobin 13.9 g/dL (12.0-15.0); Mean Corpuscular HGB Conc 32.6 g/dl (32-36); Mean Corpuscular Hemoglobin 28.8 pg (26-34); Mean Corpuscular Volume 88.2 fl (80-100); Mean Platelet Volume 9.3 fl (7.4-10.4); Platelet Count Result 266 k/mm3 (150-375); Red Blood Count 4.83 M/mm3 (4.2-5.4); Red Cell Distribution Width 14.3 % (11.5-14.5); White Blood Count 6.6 K/mm3 (4.5-10.0)
[2021-02-27 07:48] LABS: INR 0.9; Prothrombin Time 12.3 Seconds (11.1-14.7)
[2021-02-27] MEDS: ALBUTEROL SULFATE (*SP) INHALER 2 PUFF INHALATION ×3 (07:48→18:47)
[2021-02-27 07:52] LABS: Alanine Aminotransferase 152 U/L (4-35); Albumin Level 3.8 g/dL (3.5-5.1); Alkaline Phosphatase 106 U/L (38-126); Anion Gap 9 mmol/L (8-16); Aspartate Amino Transferase 124 U/L (14-36); Bilirubin,Total 0.3 mg/dL (0.2-1.3); Blood Urea Nitrogen 10 mg/dL (7-17); CRP 2.4 mg/dL (<1.0); Calcium 8.2 mg/dL (8.4-10.2); Carbon Dioxide 28 mmol/L (22-30); Chloride 100 mmol/L (98-107); Estimated CRCL calculation 247 ml/min; Estimated Glomerular Filt Rate > 60; Glucose 99 mg/dL (65-110); Lactate Dehydrogenase 1217 U/L (313-618); Potassium 3.9 mmol/L (3.4-5.0); Sodium 137 mmol/L (137-145)
--- NOTE | 2021-02-27 08:40 | PM.IMPN ---
Progress Note: A&P Assessment and Plan (1) COVID-19: Code(s): U07.1 - COVID-19 Status: Acute Assessment and Plan: She reports exposure to COVID-19 and has not been vaccinated against COVID. Covid test positive Dexamethasone changed 6mg IV BID and remdesivir day 4, probably needs to be increased to 10 days Oxygen demand increased to 15L high flow cannula Continue isolation precautions Trend inflammatory markers Azithromycin started Tocilizumab 800mg IV once Albuterol inhaler PRN CTA: No PE noted IS Trend SPO2 Wean oxygen as indicated Encourage side and prone positioning LDH 1217, CRP 2.4, Dimer 0.34 Chest xray: Continued progression/Diffuse PNA Lovenox 40mg SubQ daily Continuous Pulsox (2) Pneumonia: Code(s): J18.9 - Pneumonia, unspecified organism Status: Acute Assessment and Plan: Chest x-ray shows diffuse pneumonia, most likely COVID pneumonia Sputum culture ordered though cough is nonproductive Albuterol MDI available as needed Mucinex and Cornet ordered to help mobilize secretions Started azithromycin Covid test positive (3) Hypoxia: Code(s): R09.02 - Hypoxemia Status: Acute Assessment and Plan: Noted to be hypoxic down to 80% ABG indicated hyoxia with SpO2 52.8 supplemental O2 per nasal cannula. Wean Supplemental O2 as needed with goal SpO2 92% or above (4) Hypertension: Code(s): I10 - Essential (primary) hypertension Status: Acute Assessment and Plan: Current blood pressure is 133/80 Continue home medications Trend BP Adjust medications as needed (5) Nausea & vomiting: Code(s): R11.2 - Nausea with vomiting, unspecified Status: Acute Assessment and Plan: Complaints of nausea and vomiting Zofran ordered (6) Transaminitis: Code(s): R74.01 - Elevation of levels of liver transaminase levels Status: Acute Assessment and Plan: Liver enzymes elevated AST/ALT 124/152 Trend Hepatitis panel pending Consider RUQ ultrasound if indicated (7) Chest pain: Qualifiers: Chest pain type: unspecified Qualified Code(s): R07.9 - Chest pain, unspecified Code(s): R07.9 - Chest pain, unspecified Status: Acute Assessment and Plan: Complaints of pressure and pain Trops negative BNP 48 Probably related to coughing Time Spent With Patient Time: Time spent with patient face to face Time with patient: Greater than 35 minutes Subjective Date/time seen: 02/27/21 08:40 Interval history: Date/Time: 02/24/21 15:00 Narrative: This is a 30-year-old female with hypertension who presented to the emergency department earlier today from home for evaluation of shortness of breath. She has not been feeling well since Friday with multiple symptoms to include cough productive of clear phlegm, congestion, shortness of breath, and fever up to nearly 103? F. She was exposed to COVID his last weekend and tested positive for the same on a home kit two days ago on . She has been taking Tylenol and ibuprofen as needed for her aches and fever. Unfortunately she continues to have high fevers and shortness of breath and thus she came in today for evaluation. CTA of the chest showed diffuse lung disease consistent with COVID pneumonia and she is being admitted in this setting. At the time my evaluation she is requiring approximately 2 L nasal cannula and reports feeling somewhat better with the oxygen. She denies anosmia, dysgeusia, odynophagia, chest pain, pleuritic pain, vomiting, and diarrhea. The patient is unvaccinated for COVID. Date/time seen: 02/25/21 12:37 Cristina Pettti is a 30-year-old female with a history of hypertension, anxiety, depression who is seen in follow-up for pneumonia, suspected secondary to COVID-19. She is starting to feel better today. Her shortness of breath h
--- NOTE | 2021-02-27 08:40 | P.PNIM_ITS ---
Progress Note: A&P Assessment and Plan (1) COVID-19: Code(s): U07.1 - COVID-19 Status: Acute Assessment and Plan: * She reports exposure to COVID-19 and has not been vaccinated against COVID. * Covid test positive * Dexamethasone changed 6mg IV BID and remdesivir day 4, probably needs to be increased to 10 days * Oxygen demand increased to 15L high flow cannula * Continue isolation precautions * Trend inflammatory markers * Azithromycin started * Tocilizumab 800mg IV once * Albuterol inhaler PRN * CTA: No PE noted * IS * Trend SPO2 * Wean oxygen as indicated * Encourage side and prone positioning * LDH 1217, CRP 2.4, Dimer 0.34 * Chest xray: Continued progression/Diffuse PNA * Lovenox 40mg SubQ daily * Continuous Pulsox (2) Pneumonia: Code(s): J18.9 - Pneumonia, unspecified organism Status: Acute Assessment and Plan: * Chest x-ray shows diffuse pneumonia, most likely COVID pneumonia * Sputum culture ordered though cough is nonproductive * Albuterol MDI available as needed * Mucinex and Cornet ordered to help mobilize secretions * Started azithromycin * Covid test positive (3) Hypoxia: Code(s): R09.02 - Hypoxemia Status: Acute Assessment and Plan: * Noted to be hypoxic down to 80% * ABG indicated hyoxia with SpO2 52.8 * supplemental O2 per nasal cannula. * Wean Supplemental O2 as needed with goal SpO2 92% or above (4) Hypertension: Code(s): I10 - Essential (primary) hypertension Status: Acute Assessment and Plan: * Current blood pressure is 133/80 * Continue home medications * Trend BP * Adjust medications as needed (5) Nausea & vomiting: Code(s): R11.2 - Nausea with vomiting, unspecified Status: Acute Assessment and Plan: * Complaints of nausea and vomiting * Zofran ordered (6) Transaminitis: Code(s): R74.01 - Elevation of levels of liver transaminase levels Status: Acute Assessment and Plan: * Liver enzymes elevated AST/ALT 124/152 * Trend * Hepatitis panel pending * Consider RUQ ultrasound if indicated (7) Chest pain: Qualifiers: Chest pain type: unspecified Qualified Code(s): R07.9 - Chest pain, unspecified Code(s): R07.9 - Chest pain, unspecified Status: Acute Assessment and Plan: * Complaints of pressure and pain * Trops negative * BNP 48 * Probably related to coughing Time Spent With Patient Time: Time spent with patient face to face Time with patient: Greater than 35 minutes Subjective Date/time seen: 02/27/21 08:40 Interval history: Date/Time: 02/24/21 15:00 Narrative: This is a 30-year-old female with hypertension who presented to the emergency department earlier today from home for evaluation of shortness of breath. She has not been feeling well since Friday with multiple symptoms to include cough productive of clear phlegm, congestion, shortness of breath, and fever up to nearly 103? F. She was exposed to COVID his last weekend and tested positive for the same on a home kit two days ago on . She has been taking Tylenol and ibuprofen as needed for her aches and fever. Unfortunately she continues to have high fevers and shortness of breath and thus she came in today for evaluation. CTA of the chest showed diffuse lung disease consistent with COVID pneumonia and she is being admitted in this set
[2021-02-27] MEDS: guaiFENesin 12 HR 600 MG TABCR PO ×2 (09:40→20:41)
[2021-02-27] MEDS: ENOXAPARIN 40 MG/0.4 ML SYRINGE SUB-Q (09:40)
[2021-02-27 10:21] LABS: Alveolar/Arterial O2 Gradient 475.6 mmHg; Base Excess ABG 1.3 mEq/l (+/-2.0); Fractional Inspired Oxygen 80 %; HCO3 ABG 25.7 mEq/l (22.0-26.0); Methemoglobin ABG 0.2 %THb (0-1.5); Oxygen Content ABG 17.6 %vol (16.0-22.0); Oxygen Saturation ABG 88.2 % (95.0-100.0); PO2 ABG 52.8 mmHg (80.0-100.0); PO2 FiO2 Ratio Arterial Blood 0.66 %; Reduced Hemoglobin 10.8 %THb (0-5.0); Total Hemoglobin 14.1 g/dL (12.0-18.0); pH ABG 7.426 (7.350-7.450)
[2021-02-27 10:22] LABS: Device HIGH FLOW NASAL CANN; Modified Allen's Test Pass; Site Drawn RIGHT RADIAL
[2021-02-27] MEDS: TOCILIZUMAB 800 MG in SODIUM CHLORIDE 0.9% IV 60 ML 100 MG IVPB (10:34)
[2021-02-27 10:53] LABS: NT Pro B Type Natriuretic Pept 42 pg/mL (5-100)
[2021-02-27 10:54] LABS: Troponin I < 0.012 ng/mL (0.000-0.034)
[2021-02-27 10:56] LABS: D Dimer 0.34 ug/mL (<0.48)
[2021-02-27] MEDS: ONDANSETRON INJ 4 MG/2 ML VIAL IV PUSH (10:58)
[2021-02-27 11:13] LABS: Troponin I < 0.012 ng/mL (0.000-0.034)
[2021-02-27 11:32] LABS: Hepatitis B Surface Antigen Negative (Negative)
[2021-02-27 11:38] LABS: HAV RESULT Negative (Negative); Hepatitis B Core IgM Result Negative (Negative)
[2021-02-27] MEDS: REMDESIVIR 100 MG/NS 250 ML 100 MG/250 ML BAG 200 MG IVPB (11:42)
[2021-02-27 11:50] LABS: Hepatitis C Virus Antibody Negative (Negative)
[2021-02-27] MEDS: QUEtiapine FUMARATE 100 MG TABLET 200 MG PO (20:40)
[2021-02-27] MEDS: amLODIPine BESYLATE 5 MG TABLET 10 MG PO (20:41)
[2021-02-28] VITALS (17 sets, daily range): BP systolic 103–164; BP diastolic 56–89; PULSE 72–104; RESP 14–33; TEMP 36.4–37.3; O2SAT 88–91
--- NOTE | 2021-02-28 03:20 | PM.EVENT ---
Event Note Event Note Event Note: Respiratory therapy called. The patient was maxed out on high-flow nasal cannula and non-rebreather satting 89%. Subsequently orders were placed to transfer the patient to IMU and patient was placed on Airvo.
--- NOTE | 2021-02-28 05:05 | PC.NURSE ---
Patient was transferred to ICU -10 as an overflow for IMU on this date. Report was given by phone to Dannie prior to transfer. All belongings were transferred with the patient.
[2021-02-28 05:46] LABS: Basophils Percent Auto 0.5 % (0.2-1.2); Hematocrit 47.8 % (37.0-47.0); Hemoglobin 15.1 g/dL (12.0-15.0); Immature Granulocyte Absolute 0.17 K/mm3 (0.00-0.031); Immature Granulocyte Percent A 4.4 % (0-0.5); Lymphocytes Absolute Auto 0.65 K/mm3 (0.9-3.2); Lymphocytes Percent Auto 16.8 % (18.3-44.2); Mean Corpuscular HGB Conc 31.6 g/dl (32-36); Mean Corpuscular Hemoglobin 28.8 pg (26-34); Mean Platelet Volume 9.4 fl (7.4-10.4); Monocytes Absolute Auto 0.4 K/mm3 (0.1-0.6); Monocytes Percent Auto 9.8 % (2.6-8.5); Neutrophils Absolute Auto 2.7 K/mm3 (1.3-6.7); Neutrophils Percent Auto 68.5 % (45.5-73.1); Platelet Count Result 263 k/mm3 (150-375); Red Blood Count 5.25 M/mm3 (4.2-5.4); White Blood Count 3.9 K/mm3 (4.5-10.0)
[2021-02-28 06:14] LABS: Alanine Aminotransferase 180 U/L (4-35); Albumin Level 3.8 g/dL (3.5-5.1); Alkaline Phosphatase 102 U/L (38-126); Anion Gap 9 mmol/L (8-16); Aspartate Amino Transferase 141 U/L (14-36); Bilirubin,Total 0.4 mg/dL (0.2-1.3); Blood Urea Nitrogen 11 mg/dL (7-17); CRP 1.9 mg/dL (<1.0); Calcium 8.1 mg/dL (8.4-10.2); Carbon Dioxide 26 mmol/L (22-30); Chloride 102 mmol/L (98-107); Estimated CRCL calculation 247 ml/min; Estimated Glomerular Filt Rate > 60; Glucose 125 mg/dL (65-110); Lactate Dehydrogenase 1505 U/L (313-618); Magnesium 2.1 mg/dL (1.6-2.3); Potassium 4.1 mmol/L (3.4-5.0); Sodium 137 mmol/L (137-145)
--- NOTE | 2021-02-28 09:24 | PM.IMPN ---
Progress Note: A&P Assessment and Plan (1) Acute respiratory failure: Code(s): J96.00 - Acute respiratory failure, unspecified whether with hypoxia or hypercapnia Status: Acute Assessment and Plan: Acute Respiratory failure secondary to COVID-19 pneumonia Currently adequately saturating on 15 L nasal cannula and non-rebreather mask No respiratory distress or tachypnea this time Monitor closely May need Airvo (2) COVID-19: Code(s): U07.1 - COVID-19 Status: Acute Assessment and Plan: She is on vaccinated against COVID-19 and now has a COVID 19 pneumonia Continue Dexamethasone which was changed 6mg IV BID She will complete a 5 day course of remdesivir today Received dose of tocilizumab on 02/27 Continue isolation precautions Trend inflammatory markers Continue Azithromycin Albuterol inhaler PRN CTA: No PE noted IS , up in chair Trend SPO2 Wean oxygen as indicated Encourage side and prone positioning Chest xray: Persistent bilateral diffuse infiltrates Lovenox 40mg SubQ daily Continue guaifenesin add Tessalon (3) Pneumonia: Code(s): J18.9 - Pneumonia, unspecified organism Status: Acute (4) Hypertension: Code(s): I10 - Essential (primary) hypertension Status: Acute Assessment and Plan: Controlled Continue Norvasc (5) Nausea & vomiting: Code(s): R11.2 - Nausea with vomiting, unspecified Status: Acute Assessment and Plan: Currently denies any complaints. Continue p.r.n. Zofran (6) Transaminitis: Code(s): R74.01 - Elevation of levels of liver transaminase levels Status: Acute Assessment and Plan: Elevated liver enzymes likely secondary to fatty liver. Level is not high enough to preclude remdesivir dosing which she will complete today Viral hepatitis panel was negative Check right upper quadrant ultrasound Additional Plan DVT prophylaxis -Lovenox Nutrition -regular diet Code Status - Full Code Subjective Date/time seen: 02/28/21 09:24 Overnight events reviewed. Afebrile Transfer to step-down unit due to increased oxygen requirement but maintained on 15 L nasal cannula and a non-rebreather mask overnight Afebrile overnight. Adequate urine output and Vitals acceptable Denies any new complaints. She states she feels little better today as compared to yesterday. She denies feeling short of breath. Continues to have cough which is mostly dry. No chest pain fever abdominal pain nausea vomiting or diarrhea. All other systems were reviewed and were negative Interval history: Date/Time: 02/24/21 15:00 Narrative: This is a 30-year-old female with hypertension who presented to the emergency department earlier today from home for evaluation of shortness of breath. She has not been feeling well since Friday with multiple symptoms to include cough productive of clear phlegm, congestion, shortness of breath, and fever up to nearly 103? F. She was exposed to COVID his last weekend and tested positive for the same on a home kit two days ago on . She has been taking Tylenol and ibuprofen as needed for her aches and fever. Unfortunately she continues to have high fevers and shortness of breath and thus she came in today for evaluation. CTA of the chest showed diffuse lung disease consistent with COVID pneumonia and she is being admitted in this setting. At the time my evaluation she is requiring approximately 2 L nasal cannula and reports feeling somewhat better with the oxygen. She denies anosmia, dysgeusia, odynophagia, chest pain, pleuritic pain, vomiting, and diarrhea. The patient is unvaccinated for COVID. Review of Systems Review of Systems: All systems reviewed & are unremarkable except as noted in HPI and below (Subjective) Exam Narrative: General: Pt is alert awake and in NAD Lungs/Chest: Trachea central Clear BS B/L, No crackles or wheezing.
[2021-02-28] MEDS: guaiFENesin 12 HR 600 MG TABCR PO ×2 (09:53→20:04)
[2021-02-28] MEDS: ENOXAPARIN 40 MG/0.4 ML SYRINGE SUB-Q (09:53)
[2021-02-28] MEDS: BENZONATATE 100 MG CAPSULE PO ×2 (10:53→17:22)
[2021-02-28] MEDS: LIDOCAINE HCL 1% PF INJ 5 ML VIAL INFILTRATE (11:30)
[2021-02-28] MEDS: REMDESIVIR 100 MG/NS 250 ML 100 MG/250 ML BAG 250 MG IVPB (13:10)
[2021-02-28 14:03] LABS: D Dimer 0.53 ug/mL (<0.48)
[2021-02-28] MEDS: ACETAMINOPHEN 325 MG TABLET 650 MG PO (14:30)
[2021-02-28] MEDS: CENTRAL LINE FLUSH 10 ML IV PUSH ×2 (14:34→20:05)
--- NOTE | 2021-02-28 18:48 | PC.NURSE ---
Updated patient's parents on intubation process and post- intubation care per patient request.
[2021-02-28] MEDS: QUEtiapine FUMARATE 100 MG TABLET 200 MG PO (20:04)
[2021-02-28] MEDS: amLODIPine BESYLATE 5 MG TABLET 10 MG PO (20:04)
[2021-02-28] MEDS: ONDANSETRON INJ 4 MG/2 ML VIAL IV PUSH (21:18)
[2021-02-28] MEDS: ZOLPIDEM TARTRATE (*CRX) 5 MG TABLET PO (21:18)
--- NOTE | 2021-02-28 22:04 | PM.EVENT ---
Event Note Event Note Event Note: 02/28/2021 21:40 Nursing staff called as the patient had been switched from high-flow nasal cannula with non-rebreather to Airvo. Despite Airvo use patient's oxygen saturations were remaining 84%. And I ordered CPAP. Patient was initially started on a CPAP of 12 but pulse ox was only 88%. Subsequently CPAP was increased to 15 with improvement in oxygen saturations to 91%. The patient's pulling tidal volumes between 5 and 600. Patient was requiring 100% FiO2. The patient's respiratory rate was also climbing into the 40s but improved after placed on CPAP. Respiratory rate currently 30. The patient did get up to bedside commode and desatted down to the 60s. Subsequently Mejia catheter was placed. 30 minutes spent in critical care activities. Due to a high probability of clinically significant, life threatening deterioration, the patient required my highest level of preparedness to intervene emergently and I personally spent this critical care time directly and personally managing the patient. This critical care time included obtaining a history; examining the patient; pulse oximetry; ordering and review of studies; arranging urgent treatment with development of a management plan; evaluation of patient's response to treatment; frequent reassessment; and discussions with other providers. It was exclusive of separately billable procedures and treating other patients and teaching time. Please see Assessment and Plan section and the rest of the note for further information on patient assessment and treatment.
[2021-03-01] VITALS (17 sets, daily range): BP systolic 113–141; BP diastolic 66–94; PULSE 58–80; RESP 22–38; TEMP 36.6–36.8; O2SAT 90–96
[2021-03-01] MEDS: CENTRAL LINE FLUSH 10 ML IV PUSH ×3 (04:45→22:00)
[2021-03-01 05:08] LABS: Hematocrit 46.2 % (37.0-47.0); Hemoglobin 14.9 g/dL (12.0-15.0); Mean Corpuscular HGB Conc 32.3 g/dl (32-36); Mean Corpuscular Hemoglobin 28.9 pg (26-34); Mean Corpuscular Volume 89.5 fl (80-100); Mean Platelet Volume 9.5 fl (7.4-10.4); Platelet Count Result 289 k/mm3 (150-375); Red Blood Count 5.16 M/mm3 (4.2-5.4); Red Cell Distribution Width 13.8 % (11.5-14.5); White Blood Count 9.8 K/mm3 (4.5-10.0)
[2021-03-01] MEDS: ENOXAPARIN 40 MG/0.4 ML SYRINGE SUB-Q (08:28)
--- NOTE | 2021-03-01 08:56 | WPDINTPN ---
Progress Note: A&P Assessment and Plan (1) Acute respiratory failure: Code(s): J96.00 - Acute respiratory failure, unspecified whether with hypoxia or hypercapnia Status: Acute Assessment and Plan: Acute Respiratory failure secondary to COVID-19 pneumonia Patient has gradually worsening hypoxia. Yesterday she was adequately saturating on 15 L nasal cannula and non-rebreather mask. She was placed on CPAP overnight due to see saturation. She is maintaining a saturation on CPAP at this time. I will do a trial of Airvo and see if patient tolerates. I have spoken to patient and explained that if air would does not work she will go back to CPAP or BiPAP. If she is unable to maintain her saturation on NIPPV or becomes dependent on CPAP/BiPAP then will need intubation which she is agreeable to. She has some tachypnea this time but no respiratory distress or use of accessory muscles. I will continue to Monitor her closely in ICU. As above-mentioned she may need intubation eventually Will check chest x-ray Will give a dose of Lasix patient is positive for balance P.r.n. guaifenesin and Tessalon CT on presentation showed no PE P.r.n. bronchodilators (2) COVID-19: Code(s): U07.1 - COVID-19 Status: Acute Assessment and Plan: She is not vaccinated against COVID-19 and now has a COVID 19 pneumonia Continue Dexamethasone which was changed 6mg IV BID She has completed a 5 day course of remdesivir Received dose of tocilizumab on 02/27 and her CRP has decreased consistently She was started on azithromycin which will be continued for a 5 day course Continue isolation precautions Trend inflammatory markers (3) Pneumonia: Code(s): J18.9 - Pneumonia, unspecified organism Status: Acute (4) Hypertension: Code(s): I10 - Essential (primary) hypertension Status: Acute Assessment and Plan: Controlled Continue Norvasc (5) Transaminitis: Code(s): R74.01 - Elevation of levels of liver transaminase levels Status: Acute Assessment and Plan: Elevated liver enzymes likely secondary to fatty liver. Viral hepatitis panel was negative Right upper quadrant ultrasound confirms diagnosis of hepatic steatosis Additional Plan DVT prophylaxis -Lovenox Nutrition -regular diet Code Status - Full Code. States to contact her dad if she is unable to make decisions for herself Total Critical Care Time - 32 minutes Due to a high probability of clinically significant, life threatening deterioration, the patient required my highest level of preparedness to intervene emergently and I personally spent this critical care time directly and personally managing the patient. This critical care time included obtaining a history; examining the patient; pulse oximetry; ordering and review of studies; arranging urgent treatment with development of a management plan; evaluation of patient's response to treatment; frequent reassessment; and discussions with other providers. It was exclusive of separately billable procedures and treating other patients and teaching time. Please see Assessment and Plan section and the rest of the note for further information on patient assessment and treatment Subjective Date/time seen: 03/01/21 08:56 Overnight patient was placed on CPAP of 15 cm pressure with 100% FiO2 due to hypoxic. Patient was changed to ICU status worsening hypoxia. Patient continues to be on CPAP this morning. She states she feels better and denies shortness of breath but she saturating only 90% on 100% on 15 cm pressure. Otherwise vital signs are stable and she is afebrile. She states she has cough which is mostly dry and denies any other complaint. Patient denies fever, chest pain, nausea vomiting, abdominal pain, diarrhea, headache or constipation. All other systems were reviewed and were negative Review of Systems Review of Systems: All systems reviewed & are unremarkable except
[2021-03-01] MEDS: FUROSEMIDE INJ 40 MG/4 ML VIAL 20 MG IV PUSH (10:55)
[2021-03-01] MEDS: ONDANSETRON INJ 4 MG/2 ML VIAL IV PUSH (12:08)
[2021-03-01 14:05] LABS: Alanine Aminotransferase 296 U/L (4-35); Albumin Level 3.7 g/dL (3.5-5.1); Alkaline Phosphatase 104 U/L (38-126); Anion Gap 5 mmol/L (8-16); Aspartate Amino Transferase 184 U/L (14-36); Bilirubin,Total 0.5 mg/dL (0.2-1.3); Blood Urea Nitrogen 19 mg/dL (7-17); CRP 0.8 mg/dL (<1.0); Calcium 8.1 mg/dL (8.4-10.2); Carbon Dioxide 30 mmol/L (22-30); Chloride 100 mmol/L (98-107); Estimated CRCL calculation 210 ml/min; Estimated Glomerular Filt Rate > 60; Glucose 142 mg/dL (65-110); Magnesium 2.2 mg/dL (1.6-2.3); Potassium 4.5 mmol/L (3.4-5.0); Sodium 135 mmol/L (137-145)
--- NOTE | 2021-03-01 14:07 | PM.IMPN ---
Progress Note: A&P Assessment and Plan (1) Acute respiratory failure: Code(s): J96.00 - Acute respiratory failure, unspecified whether with hypoxia or hypercapnia Status: Acute Assessment and Plan: Acute Respiratory failure secondary to COVID-19 pneumonia Patient has gradually worsening hypoxia. Currently on BiPAP/CPAP further care per internet application developer P.r.n. guaifenesin and Tessalon CT on presentation showed no PE P.r.n. bronchodilators (2) COVID-19: Code(s): U07.1 - COVID-19 Status: Acute Assessment and Plan: She is not vaccinated against COVID-19 and now has a COVID 19 pneumonia Continue Dexamethasone which was changed 6mg IV BID She has completed a 5 day course of remdesivir Received dose of tocilizumab on 02/27 and her CRP has decreased consistently She was started on azithromycin which will be continued for a 5 day course Continue isolation precautions Trend inflammatory markers (3) Pneumonia: Code(s): J18.9 - Pneumonia, unspecified organism Status: Acute (4) Hypertension: Code(s): I10 - Essential (primary) hypertension Status: Acute Assessment and Plan: Controlled Continue Norvasc (5) Transaminitis: Code(s): R74.01 - Elevation of levels of liver transaminase levels Status: Acute Assessment and Plan: Elevated liver enzymes likely secondary to fatty liver. Viral hepatitis panel was negative Right upper quadrant ultrasound confirms diagnosis of hepatic steatosis Additional Plan DVT prophylaxis -Lovenox Nutrition -regular diet Code Status - Full Code. Subjective Date/time seen: 03/01/21 14:07 Interval history: Date/Time: 02/24/21 15:00 Narrative: This is a 30-year-old female with hypertension who presented to the emergency department earlier today from home for evaluation of shortness of breath. She has not been feeling well since Friday with multiple symptoms to include cough productive of clear phlegm, congestion, shortness of breath, and fever up to nearly 103? F. She was exposed to COVID his last weekend and tested positive for the same on a home kit two days ago on . She has been taking Tylenol and ibuprofen as needed for her aches and fever. Unfortunately she continues to have high fevers and shortness of breath and thus she came in today for evaluation. CTA of the chest showed diffuse lung disease consistent with COVID pneumonia and she is being admitted in this setting. At the time my evaluation she is requiring approximately 2 L nasal cannula and reports feeling somewhat better with the oxygen. She denies anosmia, dysgeusia, odynophagia, chest pain, pleuritic pain, vomiting, and diarrhea. The patient is unvaccinated for COVID. Date/time seen: 02/25/21 12:37 Cristina Pettit is a 30-year-old female with a history of hypertension, anxiety, depression who is seen in follow-up for pneumonia, suspected secondary to COVID-19. She is starting to feel better today. Her shortness of breath has improved. She is still coughing intermittently but denies productive cough. Denies fevers or chills today. No chest pain or palpitations. She has not had any fevers today. Denies chills or sweats. No abdominal pain. She is eating well. She does note some variations in her sense of smell. She denies diarrhea. She had a regular bowel movement this morning. Denies any urinary symptoms. No nausea or vomiting. She is tolerating her diet. Denies myalgias or arthralgias. She is in good spirits. Date/Time seen: 02/26/21 14:32 Cristina Pettit is a pleasant 30-year-old female with a history of hypertension, anxiety, depression who is seen in follow-up for pneumonia, suspected secondary to COVID-19. She is feeling okay today. She has been having coughing fits throughout the day. Denies productive cough. She stated that she had improvement after having a hot tea with honey. She does endorse shortness of breath and dyspnea o
[2021-03-01 14:08] LABS: Lactate Dehydrogenase 2339 U/L (313-618)
[2021-03-01] MEDS: LORazepam INJ (*CRX) 2 MG/ML VIAL 0.5 MG IV PUSH (20:14)
[2021-03-01] MEDS: OLANZapine 10 MG INJ VIAL 2.5 MG IM (20:32)
[2021-03-02] VITALS (47 sets, daily range): BP systolic 88–151; BP diastolic 66–91; PULSE 63–121; RESP 14–39; TEMP 36.2–37.2; O2SAT 73–99; BMI 68.3
[2021-03-02] MEDS: CENTRAL LINE FLUSH 10 ML IV PUSH ×3 (06:00→22:00)
[2021-03-02] MEDS: PROPOFOL IV EMULSION 100 ML 59.34 MG IV CONT ×10 (08:15→23:02)
[2021-03-02] MEDS: FENTANYL 2,500MCG/NS250ML(*CRX 2,500 MCG/250 ML BAG 10 MCG IV CONT (08:30)
--- NOTE | 2021-03-02 08:37 | WPDINTPN ---
Progress Note: A&P Assessment and Plan (1) Acute respiratory failure: Code(s): J96.00 - Acute respiratory failure, unspecified whether with hypoxia or hypercapnia Status: Acute Assessment and Plan: Acute Respiratory failure secondary to COVID-19 pneumonia Patient has gradually worsening hypoxia. 02/28 she was transferred to ICU as she was 15 L nasal cannula and non-rebreather mask. Overnight, She was placed on CPAP due to desaturation. I did a head trial of Airvo but patient did not tolerate it and had to be placed back on CPAP. 03/02 -patient saturating 88 89% on CPAP 15 cm which has been on for close to 36 hours. Patient appeared tired and worn out and in respiratory distress. I discussed option of intubation and sedation with I did explain to her that this pneumonia may not get better and she may not come off of ventilator. Patient verbalized understanding but agreed for intubation and mechanical ventilation. She did a brief face time with her father. Patient had reserve and immediately when patient received sedation for intubation she became hypoxic with sats in 80s. Patient was intubated without any significant difficulty but post intubation patient dropped her saturations and would not recover. Patient was bagged for a long time with PEEP valve but saturations remain in 70s. Patient Was paralyzed with another dose of rocuronium, sedated with propofol and later fentanyl infusion was added but saturation remained in 70s. Chest x-ray was done and ET tube was withdrawn by 3 cm but it did not. Chest x-ray showed diffuse bilateral infiltrates. Patient was then placed in prone position which and her saturation improved to high 80s. Now placed on ventilator with 6 mL/kg tidal volume, rate of 24, peep of 15 and FiO2 of 100%. I was at bedside throughout this process Will check ABG I will call [facility] the patient is ECMO candidate although I think her BMI would exclude her as a potential candidate for ECMO P.r.n. bronchodilators (2) COVID-19: Code(s): U07.1 - COVID-19 Status: Acute Assessment and Plan: She is not vaccinated against COVID-19 and now has a COVID 19 pneumonia Continue Dexamethasone which was changed 6mg IV BID She has completed a 5 day course of remdesivir Received dose of tocilizumab on 02/27 and her CRP has decreased consistently She was started on azithromycin which will be continued for a 5 day course Continue isolation precautions Trend inflammatory markers (3) Pneumonia: Code(s): J18.9 - Pneumonia, unspecified organism Status: Acute (4) Hypertension: Code(s): I10 - Essential (primary) hypertension Status: Acute Assessment and Plan: Controlled Treat as needed (5) Transaminitis: Code(s): R74.01 - Elevation of levels of liver transaminase levels Status: Acute Assessment and Plan: Elevated liver enzymes likely secondary to fatty liver. Viral hepatitis panel was negative Right upper quadrant ultrasound confirms diagnosis of hepatic steatosis Additional Plan DVT prophylaxis -Lovenox Nutrition -regular diet Code Status - Full Code. States to contact her dad if she is unable to make decisions for herself Total Critical Care Time - 90 minutes Due to a high probability of clinically significant, life threatening deterioration, the patient required my highest level of preparedness to intervene emergently and I personally spent this critical care time directly and personally managing the patient. This critical care time included obtaining a history; examining the patient; pulse oximetry; ordering and review of studies; arranging urgent treatment with development of a management plan; evaluation of patient's response to treatment; frequent reassessment; and discussions with other providers. It was exclusive of separately billable procedures and treating other patients and teaching time. Please see Assessment and Plan section and the re
[2021-03-02] MEDS: CISATRACURIUM BESYLATE 200 MG in DEXTROSE 5% 80 ML 17.8 ML IV CONT (08:52)
[2021-03-02] MEDS: ENOXAPARIN 40 MG/0.4 ML SYRINGE SUB-Q (09:02)
--- NOTE | 2021-03-02 09:04 | WPDPROCEDUR ---
Procedures Intubation Intubation Date: 03/02/21 Intubation Time: 08:00 Consent: Verbal consent was obtained from patient. A pre-procedural Time-Out was completed immediately before starting the procedure and confirmed: Patient Identification, Site, Procedure, Patient Position and the Availability of Requisite Equipment: Yes Sedative: etomidate Mg given: 20 Paralytic: succinylcholine Mg given: 100 Laryngoscope: fiber optic video scope ET tube size: 8 Tube secured depth (cm): 24 Tube secured location: lips Tube placement confirmation: visualized tube passing through cords, equal breath sounds bilaterally and confirmation by capnometry Patient tolerated procedure: other Intubation complications: hypoxia Additional comments: Intubation was not complicated but patient remained hypoxic for a post intubation. See my daily progress note for additional details
--- NOTE | 2021-03-02 10:44 | PM.EVENT ---
Event Note Event Note Event Note: I called and spoke to Dr. Tovar at [facility] ECMO team. I discussed the case with her for to see if patient is a candidate for ECMO. After review of information she told me the patient's BMI exclude her from their ECMO criteria which is BMI of 45. His BMI is 68. She did assure me that she will discuss the case with other members and if there is any change in the decision they will call back. I spoke to patient's father Nehemias by phone and updated him with patient's current condition. I updated him with overnight events, events of this morning including intubation and explained the critical nature of patient's illness and guarded prognosis. I also explained him the treatment plan and my discussion with [facility]. I answered all their questions. Additional critical care time 15 minutes
[2021-03-02 11:00] LABS: Alveolar/Arterial O2 Gradient 387.4 mmHg; Base Excess ABG 0.6 mEq/l (+/-2.0); Carboxyhemoglobin 0.1 % THb (0-2.0); Fractional Inspired Oxygen 90 %; HCO3 ABG 28.4 mEq/l (22.0-26.0); Methemoglobin ABG 0.4 %THb (0-1.5); Oxygen Content ABG 23.4 %vol (16.0-22.0); Oxygen Saturation ABG 99.2 % (95.0-100.0); Oxyhemoglobin 98.3 % THb (90.0-100.0); PCO2 ABG 57.9 mmHg (35.0-45.0); PO2 FiO2 Ratio Arterial Blood 2.17 %; Reduced Hemoglobin 1.2 %THb (0-5.0); Total Hemoglobin 16.7 g/dL (12.0-18.0); pH ABG 7.309 (7.350-7.450)
[2021-03-02 11:01] LABS: Device VENTILATOR; Modified Allen's Test Pass; Site Drawn RIGHT RADIAL
[2021-03-02 11:02] LABS: Arterial Blood Gas PEEP 15 cmH2O; Arterial Blood Gas Tidal Volume 360 ml; Arterial Blood Gas Vent Mode CMV; Arterial Blood Gas Ventilator rate 24 /MIN
[2021-03-02] MEDS: CISATRACURIUM BESYLATE 200 MG in DEXTROSE 5% 80 ML 20.77 ML IV CONT (12:12)
[2021-03-02 15:01] LABS: Hematocrit 48.8 % (37.0-47.0); Mean Corpuscular HGB Conc 32.8 g/dl (32-36); Mean Corpuscular Hemoglobin 29.4 pg (26-34); Mean Corpuscular Volume 89.5 fl (80-100); Mean Platelet Volume 9.1 fl (7.4-10.4); Platelet Count Result 398 k/mm3 (150-375); Red Blood Count 5.45 M/mm3 (4.2-5.4); White Blood Count 18.7 K/mm3 (4.5-10.0)
[2021-03-02 15:11] LABS: Alanine Aminotransferase 226 U/L (4-35); Albumin Level 3.8 g/dL (3.5-5.1); Alkaline Phosphatase 110 U/L (38-126); Anion Gap 5 mmol/L (8-16); Aspartate Amino Transferase 81 U/L (14-36); Bilirubin,Total 0.7 mg/dL (0.2-1.3); Blood Urea Nitrogen 26 mg/dL (7-17); Calcium 7.9 mg/dL (8.4-10.2); Carbon Dioxide 30 mmol/L (22-30); Chloride 98 mmol/L (98-107); Estimated CRCL calculation 210 ml/min; Estimated Glomerular Filt Rate > 60; Glucose 169 mg/dL (65-110); Magnesium 2.4 mg/dL (1.6-2.3); Sodium 133 mmol/L (137-145)
--- NOTE | 2021-03-02 15:27 | PC.NURSE ---
spoke with Clarisa at [facility] transfer center; they asked for the recent ABG after intubation; values given along with vent settings at that time; asked for our direct number to ICU and said they would keep in touch.
[2021-03-02] MEDS: CISATRACURIUM BESYLATE 200 MG in DEXTROSE 5% 80 ML 26.7 ML IV CONT (15:51)
--- NOTE | 2021-03-02 17:12 | P.PNIM_ITS ---
Progress Note: A&P Assessment and Plan (1) Acute respiratory failure: Code(s): J96.00 - Acute respiratory failure, unspecified whether with hypoxia or hypercapnia Status: Acute Assessment and Plan: Acute Respiratory failure secondary to COVID-19 pneumonia Patient has gradually worsening hypoxia. Started on BiPAP/CPAP further care per electrical maintenance engineer Intubated 03/02/2021 CT on presentation showed no PE P.r.n. bronchodilators (2) COVID-19: Code(s): U07.1 - COVID-19 Status: Acute Assessment and Plan: She is not vaccinated against COVID-19 and now has a COVID 19 pneumonia Continue Dexamethasone which was changed 6mg IV BID She has completed a 5 day course of remdesivir Received dose of tocilizumab on 02/27 and her CRP has decreased consistently She was started on azithromycin which will be continued for a 5 day course Continue isolation precautions Trend inflammatory markers (3) Pneumonia: Code(s): J18.9 - Pneumonia, unspecified organism Status: Acute (4) Hypertension: Code(s): I10 - Essential (primary) hypertension Status: Acute Assessment and Plan: Controlled Continue Norvasc (5) Transaminitis: Code(s): R74.01 - Elevation of levels of liver transaminase levels Status: Acute Assessment and Plan: Elevated liver enzymes likely secondary to fatty liver. Viral hepatitis panel was negative Right upper quadrant ultrasound confirms diagnosis of hepatic steatosis Additional Plan DVT prophylaxis -Lovenox Nutrition -regular diet Code Status - Full Code Subjective Date/time seen: 03/02/21 17:12 Interval history: Date/Time: 02/24/21 15:00 Narrative: This is a 30-year-old female with hypertension who presented to the emergency department earlier today from home for evaluation of shortness of breath. She has not been feeling well since Friday with multiple symptoms to include cough productive of clear phlegm, congestion, shortness of breath, and fever up to nearly 103? F. She was exposed to COVID his last weekend and tested positive for the same on a home kit two days ago on . She has been taking Tylenol and ibuprofen as needed for her aches and fever. Unfortunately she continues to have high fevers and shortness of breath and thus she came in today for evaluation. CTA of the chest showed diffuse lung disease consistent with COVID pneumonia and she is being admitted in this setting. At the time my evaluation she is requiring approximately 2 L nasal cannula and reports feeling somewhat better with the oxygen. She denies anosmia, dysgeusia, odynophagia, chest pain, pleuritic pain, vomiting, and diarrhea. The patient is unvaccinated for COVID. Date/time seen: 02/25/21 12:37 Cristina ePttit is a 30-year-old female with a history of hypertension, anxiety, depression who is seen in follow-up for pneumonia, suspected secondary to COVID-19. She is starting to feel better today. Her shortness of breath has improved. She is still coughing intermittently but denies productive cough. Denies fevers or chills today. No chest pain or palpitations. She has not had any fevers today. Denies chills or sweats. No abdominal pain. She is eating well. She does note some variations in her sense of smell. She denies diarrhea. She had a regular bowel movement this morning. Denies any urinary symptoms. No nausea or vomiting. She is tolerating her diet. Denies myalgias or arthralgias. She is in good spirits. Date/Time seen: 02/26/21 14:32 Cristina Pettit is a pleasant 30-year-old female with a history of hyper
[2021-03-02] MEDS: ALTEPLASE 2 MG VIAL (CATHFLO) IV PUSH (17:46)
[2021-03-02 18:02] LABS: Glucose Point of Care 179 mg/dl (65-105)
[2021-03-02] MEDS: CISATRACURIUM BESYLATE 200 MG in DEXTROSE 5% 80 ML 29.67 ML IV CONT (19:52)
[2021-03-02] MEDS: MINERAL OIL/WHITE PETROLATUM OINTMENT 1 APPLIC EACH EYE (19:53)
[2021-03-02] MEDS: CISATRACURIUM BESYLATE 200 MG in SODIUM CHLORIDE 0.9% IV 80 ML 29.67 ML IV CONT (23:02)
[2021-03-03] VITALS (44 sets, daily range): BP systolic 118–159; BP diastolic 71–98; PULSE 66–83; RESP 28–34; TEMP 36.1–36.6; O2SAT 92–98
[2021-03-03 00:05] LABS: Glucose Point of Care 161 mg/dl (65-105)
[2021-03-03] MEDS: FENTANYL 2,500MCG/NS250ML(*CRX 2,500 MCG/250 ML BAG 15 MCG IV CONT ×2 (00:21→16:06)
[2021-03-03] MEDS: PROPOFOL IV EMULSION 100 ML 59.34 MG IV CONT ×14 (00:44→23:26)
[2021-03-03] MEDS: CISATRACURIUM BESYLATE 200 MG in SODIUM CHLORIDE 0.9% IV 80 ML 29.67 ML IV CONT ×2 (02:40→05:54)
[2021-03-03 05:37] LABS: Alveolar/Arterial O2 Gradient 262.1 mmHg; Base Excess ABG 3.5 mEq/l (+/-2.0); Carboxyhemoglobin 0.3 % THb (0-2.0); Device VENTILATOR; Fractional Inspired Oxygen 60 %; HCO3 ABG 31.3 mEq/l (22.0-26.0); Methemoglobin ABG 0.5 %THb (0-1.5); Modified Allen's Test Pass; Oxyhemoglobin 96.2 % THb (90.0-100.0); PO2 ABG 99.7 mmHg (80.0-100.0); PO2 FiO2 Ratio Arterial Blood 1.66 %; Site Drawn LEFT RADIAL; Total Hemoglobin 16.2 g/dL (12.0-18.0); pH ABG 7.335 (7.350-7.450)
[2021-03-03 05:38] LABS: Arterial Blood Gas PEEP 15 cmH2O; Arterial Blood Gas Tidal Volume 360 ml; Arterial Blood Gas Vent Mode CMV; Arterial Blood Gas Ventilator rate 28 /MIN
[2021-03-03] MEDS: CENTRAL LINE FLUSH 10 ML IV PUSH ×3 (06:48→21:46)
[2021-03-03 07:05] LABS: Glucose Point of Care 133 mg/dl (65-105)
[2021-03-03 08:53] LABS: Hematocrit 42.6 % (37.0-47.0); Hemoglobin 15.5 g/dL (12.0-15.0); Mean Corpuscular HGB Conc 36.4 g/dl (32-36); Mean Corpuscular Hemoglobin 32.4 pg (26-34); Mean Corpuscular Volume 88.9 fl (80-100); Mean Platelet Volume 9.9 fl (7.4-10.4); Platelet Count Result 394 k/mm3 (150-375); Red Blood Count 4.79 M/mm3 (4.2-5.4); Red Cell Distribution Width 13.5 % (11.5-14.5); White Blood Count 14.5 K/mm3 (4.5-10.0)
--- NOTE | 2021-03-03 09:09 | WPDINTPN ---
Progress Note: A&P Assessment and Plan (1) Acute respiratory failure: Code(s): J96.00 - Acute respiratory failure, unspecified whether with hypoxia or hypercapnia Status: Acute Assessment and Plan: Acute Respiratory failure secondary to COVID-19 pneumonia Patient has gradually worsening hypoxia. 02/28 she was transferred to ICU as she was 15 L nasal cannula and non-rebreather mask. Overnight, She was placed on CPAP due to desaturation. I did a head trial of Airvo but patient did not tolerate it and had to be placed back on CPAP. 03/02 -patient saturating 88 89% on CPAP 15 cm which has been on for close to 36 hours. Patient appeared tired and worn out and in respiratory distress. Patient was intubated She was placed in prone position due to persistent hypoxia despite high PEEP and FiO2 and her oxygen requirement has improved overnight ABG reviewed-currently on 6 mL/kg tidal volume, rate of 28, peep of 15 and FiO2 of 60%. Chest x-ray pending 03/02 patient was deemed not a candidate for ECMO due to her high BMI by [facility] P.r.n. bronchodilators (2) COVID-19: Code(s): U07.1 - COVID-19 Status: Acute Assessment and Plan: She is not vaccinated against COVID-19 and now has a COVID 19 pneumonia Continue Dexamethasone which was changed 6mg IV BID She has completed a 5 day course of remdesivir Received dose of tocilizumab on 02/27 and her CRP has decreased consistently She was started on azithromycin which will be continued for a 5 day course Continue isolation precautions Trend inflammatory markers (3) Pneumonia: Code(s): J18.9 - Pneumonia, unspecified organism Status: Acute (4) Hypertension: Code(s): I10 - Essential (primary) hypertension Status: Acute Assessment and Plan: Currently in controlled range as patient is now sedated Norvasc has been discontinued (5) Transaminitis: Code(s): R74.01 - Elevation of levels of liver transaminase levels Status: Acute Assessment and Plan: Elevated liver enzymes likely secondary to fatty liver. Viral hepatitis panel was negative Right upper quadrant ultrasound confirms diagnosis of hepatic steatosis Additional Plan DVT prophylaxis -Lovenox Nutrition -tube feeds Code Status - Full Code. States to contact her dad if she is unable to make decisions for herself Total Critical Care Time - 32 minutes Due to a high probability of clinically significant, life threatening deterioration, the patient required my highest level of preparedness to intervene emergently and I personally spent this critical care time directly and personally managing the patient. This critical care time included obtaining a history; examining the patient; pulse oximetry; ordering and review of studies; arranging urgent treatment with development of a management plan; evaluation of patient's response to treatment; frequent reassessment; and discussions with other providers. It was exclusive of separately billable procedures and treating other patients and teaching time. Please see Assessment and Plan section and the rest of the note for further information on patient assessment and treatment Subjective Date/time seen: 03/03/21 09:09 Overnight events reviewed. Afebrile Continues to be on mechanical ventilation. She is on 60% FiO2 and 15 of PEEP Continues to be on sedation with Versed and fentanyl she is also on Nimbex infusion Vitals acceptable She was placed in prone position post intubation yesterday and through the night Review of Systems Review of Systems: ROS unobtainable: Yes unobtainable due to endotracheal tube, unobtainable due to medical condition and unobtainable due to mental status Exam Narrative: General: Pt is sedated, intubated and on mechanical ventilation. Lungs/Chest: Trachea central Coarse BS B/L, No crackles or wheezing. Cardiac: RRR. Normal S1 S2. No murmurs Circulation: Pedal pulses are intact and symme
[2021-03-03] MEDS: MINERAL OIL/WHITE PETROLATUM OINTMENT 1 APPLIC EACH EYE ×2 (09:40→21:45)
[2021-03-03] MEDS: ENOXAPARIN 40 MG/0.4 ML SYRINGE SUB-Q (09:40)
[2021-03-03] MEDS: CISATRACURIUM BESYLATE 200 MG in SODIUM CHLORIDE 0.9% IV 80 ML 23.74 ML IV CONT ×2 (10:02→23:03)
[2021-03-03 11:12] LABS: Alanine Aminotransferase 194 U/L (4-35); Albumin Level 3.7 g/dL (3.5-5.1); Alkaline Phosphatase 95 U/L (38-126); Anion Gap 3 mmol/L (8-16); Aspartate Amino Transferase 104 U/L (14-36); Bilirubin,Total 0.9 mg/dL (0.2-1.3); Blood Urea Nitrogen 21 mg/dL (7-17); CRP < 0.5 mg/dL (<1.0); Calcium 7.6 mg/dL (8.4-10.2); Carbon Dioxide 31 mmol/L (22-30); Chloride 97 mmol/L (98-107); Estimated CRCL calculation 246 ml/min; Estimated Glomerular Filt Rate > 60; Glucose 130 mg/dL (65-110); Magnesium 2.2 mg/dL (1.6-2.3); Sodium 131 mmol/L (137-145)
[2021-03-03 11:33] LABS: Lactate Dehydrogenase 2290 U/L (313-618)
[2021-03-03] MEDS: CALCIUM GLUC 2,000 MG/NS 100ML 2,000 MG/100 ML BAG 100 MG IVPB (12:01)
[2021-03-03 12:32] LABS: Glucose Point of Care 119 mg/dl (65-105)
--- NOTE | 2021-03-03 13:39 | WPDPROCEDUR ---
Procedures Intubation Intubation Date: 03/03/21 Intubation Time: 13:00 Consent: Patient was already intubated. ETT got retracted and was unable to be advanced due to coiling behind her throat A pre-procedural Time-Out was completed immediately before starting the procedure and confirmed: Patient Identification, Site, Procedure, Patient Position and the Availability of Requisite Equipment: Yes Sedative: other Paralytic: other Assist device used: Bougie ET tube size: 8 Tube secured depth (cm): 22 Tube secured location: lips Tube placement confirmation: equal breath sounds bilaterally, no breath sounds over epigastrium and confirmation by capnometry Patient tolerated procedure: well Intubation complications: hypoxia Additional comments: Patient desatted during the procedure and required bag ventilation with PEEP valve to get her sats up post intubation. Equal breath sounds. Chest x-ray done and reviewed. Withdraw ETT by 1 more cm.
[2021-03-03] MEDS: CISATRACURIUM BESYLATE 200 MG in SODIUM CHLORIDE 0.9% IV 80 ML 20.77 ML IV CONT ×2 (14:15→18:34)
--- NOTE | 2021-03-03 15:14 | PM.IMPN ---
Progress Note: A&P Assessment and Plan (1) Acute respiratory failure: Code(s): J96.00 - Acute respiratory failure, unspecified whether with hypoxia or hypercapnia Status: Acute Assessment and Plan: Acute Respiratory failure secondary to COVID-19 pneumonia Patient has gradually worsening hypoxia. 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 bronchodilators (2) COVID-19: Code(s): U07.1 - COVID-19 Status: Acute Assessment and Plan: She is not vaccinated against COVID-19 and now has a COVID 19 pneumonia Continue Dexamethasone which was changed 6mg IV BID She has completed a 5 day course of remdesivir Received dose of tocilizumab on 02/27 and her CRP has decreased consistently She was started on azithromycin which will be continued for a 5 day course Continue isolation precautions Trend inflammatory markers (3) Pneumonia: Code(s): J18.9 - Pneumonia, unspecified organism Status: Acute (4) Hypertension: Code(s): I10 - Essential (primary) hypertension Status: Acute Assessment and Plan: Controlled Continue Norvasc (5) Transaminitis: Code(s): R74.01 - Elevation of levels of liver transaminase levels Status: Acute Assessment and Plan: Elevated liver enzymes likely secondary to fatty liver. Viral hepatitis panel was negative Right upper quadrant ultrasound confirms diagnosis of hepatic steatosis Additional Plan DVT prophylaxis -Lovenox Nutrition -regular diet Code Status - Full Code Subjective Date/time seen: 03/03/21 15:14 Interval history: Date/Time: 02/24/21 15:00 Narrative: This is a 30-year-old female with hypertension who presented to the emergency department earlier today from home for evaluation of shortness of breath. She has not been feeling well since Friday with multiple symptoms to include cough productive of clear phlegm, congestion, shortness of breath, and fever up to nearly 103? F. She was exposed to COVID his last weekend and tested positive for the same on a home kit two days ago on . She has been taking Tylenol and ibuprofen as needed for her aches and fever. Unfortunately she continues to have high fevers and shortness of breath and thus she came in today for evaluation. CTA of the chest showed diffuse lung disease consistent with COVID pneumonia and she is being admitted in this setting. At the time my evaluation she is requiring approximately 2 L nasal cannula and reports feeling somewhat better with the oxygen. She denies anosmia, dysgeusia, odynophagia, chest pain, pleuritic pain, vomiting, and diarrhea. The patient is unvaccinated for COVID. Date/time seen: 02/25/21 12:37 Cristina Pettit is a 30-year-old female with a history of hypertension, anxiety, depression who is seen in follow-up for pneumonia, suspected secondary to COVID-19. She is starting to feel better today. Her shortness of breath has improved. She is still coughing intermittently but denies productive cough. Denies fevers or chills today. No chest pain or palpitations. She has not had any fevers today. Denies chills or sweats. No abdominal pain. She is eating well. She does note some variations in her sense of smell. She denies diarrhea. She had a regular bowel movement this morning. Denies any urinary symptoms. No nausea or vomiting. She is tolerating her diet. Denies myalgias or arthralgias. She is in good spirits. Date/Time seen: 02/26/21 14:32 Cristina Pettit is a pleasant 30-year-old female with a history of hypertension, anxiety, depression who is seen in follow-up for pneumonia, suspected secondary to COVID-19. She is feeling okay today. She has been having coughing fits throughout the day. Denies productive cough. She stated that she had improvement after having a hot tea with honey. She does endorse shortness of breath and dyspnea on exertion, th
[2021-03-03 16:49] LABS: Glucose Point of Care 163 mg/dl (65-105)
[2021-03-03 23:22] LABS: Glucose Point of Care 193 mg/dl (65-105)
[2021-03-04] VITALS (47 sets, daily range): BP systolic 124–157; BP diastolic 74–101; PULSE 65–99; RESP 18–30; TEMP 36.6–36.9; O2SAT 94–100
[2021-03-04] MEDS: PROPOFOL IV EMULSION 100 ML 59.34 MG IV CONT ×14 (01:15→23:03)
[2021-03-04] MEDS: CISATRACURIUM BESYLATE 200 MG in SODIUM CHLORIDE 0.9% IV 80 ML 23.74 ML IV CONT ×3 (03:16→12:03)
[2021-03-04] MEDS: CENTRAL LINE FLUSH 10 ML IV PUSH ×3 (05:04→22:28)
[2021-03-04 06:20] LABS: Base Excess ABG 2.4 mEq/l (+/-2.0); Carboxyhemoglobin 0.3 % THb (0-2.0); Fractional Inspired Oxygen 65 %; HCO3 ABG 29.2 mEq/l (22.0-26.0); Methemoglobin ABG 0.4 %THb (0-1.5); Oxygen Content ABG 22.2 %vol (16.0-22.0); Oxygen Saturation ABG 98.5 % (95.0-100.0); Oxyhemoglobin 97.4 % THb (90.0-100.0); PCO2 ABG 53.4 mmHg (35.0-45.0); PO2 ABG 131.4 mmHg (80.0-100.0); PO2 FiO2 Ratio Arterial Blood 2.02 %; Reduced Hemoglobin 1.9 %THb (0-5.0); Total Hemoglobin 16.1 g/dL (12.0-18.0); pH ABG 7.356 (7.350-7.450)
[2021-03-04 06:21] LABS: Arterial Blood Gas PEEP 15 cmH2O; Arterial Blood Gas Tidal Volume 360 ml; Arterial Blood Gas Vent Mode CMV; Arterial Blood Gas Ventilator rate 28 /MIN; Device VENTILATOR; Modified Allen's Test Pass; Site Drawn RIGHT RADIAL
[2021-03-04 07:04] LABS: Hematocrit 45.9 % (37.0-47.0); Hemoglobin 15.6 g/dL (12.0-15.0); Mean Corpuscular Hemoglobin 30.8 pg (26-34); Mean Corpuscular Volume 90.5 fl (80-100); Mean Platelet Volume 9.4 fl (7.4-10.4); Platelet Count Result 342 k/mm3 (150-375); Red Blood Count 5.07 M/mm3 (4.2-5.4); Red Cell Distribution Width 13.3 % (11.5-14.5); White Blood Count 14.2 K/mm3 (4.5-10.0)
[2021-03-04] MEDS: FENTANYL 2,500MCG/NS250ML(*CRX 2,500 MCG/250 ML BAG 15 MCG IV CONT (07:44)
--- NOTE | 2021-03-04 08:29 | WPDINTPN ---
Progress Note: A&P Assessment and Plan (1) Acute respiratory failure: Code(s): J96.00 - Acute respiratory failure, unspecified whether with hypoxia or hypercapnia Status: Acute Assessment and Plan: Acute Respiratory failure secondary to COVID-19 pneumonia Patient has gradually worsening hypoxia. 02/28 she was transferred to ICU as she was 15 L nasal cannula and non-rebreather mask. Overnight, She was placed on CPAP due to desaturation. I did a head trial of Airvo but patient did not tolerate it and had to be placed back on CPAP. 03/02 -patient saturating 88 89% on CPAP 15 cm which has been on for close to 36 hours. Patient appeared tired and worn out and in respiratory distress. Patient was intubated 03/03- ET tube was change ABG reviewed-currently on 6 mL/kg tidal volume, rate of 28, peep of 15 and FiO2 of 65%. I will drop FiO2 to 60% and continue to wean permissive hypercapnia Chest x-ray pending 03/02 patient was deemed not a candidate for ECMO due to her high BMI by [facility] P.r.n. bronchodilators Lasix 40 mg IV x1 today (2) COVID-19: Code(s): U07.1 - COVID-19 Status: Acute Assessment and Plan: She is not vaccinated against COVID-19 and now has a COVID 19 pneumonia Continue Dexamethasone but I would change the dose from b.i.d. to q.day since patient has received dexamethasone for more than 10 days now She has completed a 5 day course of remdesivir Received dose of tocilizumab on 02/27 and her CRP has decreased consistently She was started on azithromycin and she will complete a 5 day course today Continue isolation precautions Trend inflammatory markers (3) Pneumonia: Code(s): J18.9 - Pneumonia, unspecified organism Status: Acute Assessment and Plan: see above (4) Hypertension: Code(s): I10 - Essential (primary) hypertension Status: Acute Assessment and Plan: Currently in controlled range as patient is now sedated Norvasc has been discontinued (5) Transaminitis: Code(s): R74.01 - Elevation of levels of liver transaminase levels Status: Acute Assessment and Plan: Elevated liver enzymes likely secondary to fatty liver. Viral hepatitis panel was negative Right upper quadrant ultrasound confirms diagnosis of hepatic steatosis (6) Hyperglycemia: Code(s): R73.9 - Hyperglycemia, unspecified Status: Acute Assessment and Plan: secondary to steroids continue sliding scale insulin Additional Plan DVT prophylaxis -Lovenox BID SUP - PPI Nutrition -tube feeds Code Status - Full Code. States to contact her dad if she is unable to make decisions for herself Total Critical Care Time - 30 minutes Due to a high probability of clinically significant, life threatening deterioration, the patient required my highest level of preparedness to intervene emergently and I personally spent this critical care time directly and personally managing the patient. This critical care time included obtaining a history; examining the patient; pulse oximetry; ordering and review of studies; arranging urgent treatment with development of a management plan; evaluation of patient's response to treatment; frequent reassessment; and discussions with other providers. It was exclusive of separately billable procedures and treating other patients and teaching time. Please see Assessment and Plan section and the rest of the note for further information on patient assessment and treatment Subjective Date/time seen: 03/04/21 08:29 Overnight events reviewed. Afebrile Continues to be on mechanical ventilation. She is on 65% FiO2 and 15 of PEEP Continues to be on sedation with Versed and fentanyl she is also on Nimbex infusion Vitals acceptable She was placed in prone position overnight Urine output is adequate Interval history: This is a 30-year-old female with hypertension Admitted with COVID-19 pneumonia. CTA of the chest show
[2021-03-04 09:17] LABS: Alanine Aminotransferase 156 U/L (4-35); Albumin Level 3.5 g/dL (3.5-5.1); Alkaline Phosphatase 90 U/L (38-126); Anion Gap 4 mmol/L (8-16); Aspartate Amino Transferase 102 U/L (14-36); Bilirubin,Total 0.9 mg/dL (0.2-1.3); Blood Urea Nitrogen 16 mg/dL (7-17); Calcium 7.7 mg/dL (8.4-10.2); Carbon Dioxide 28 mmol/L (22-30); Chloride 97 mmol/L (98-107); Estimated CRCL calculation 293 ml/min; Estimated Glomerular Filt Rate > 60; Glucose 143 mg/dL (65-110); Potassium 5.4 mmol/L (3.4-5.0); Sodium 129 mmol/L (137-145)
[2021-03-04] MEDS: MINERAL OIL/WHITE PETROLATUM OINTMENT 1 APPLIC EACH EYE ×2 (09:33→20:33)
[2021-03-04] MEDS: ENOXAPARIN 40 MG/0.4 ML SYRINGE SUB-Q ×2 (09:33→20:32)
[2021-03-04] MEDS: FUROSEMIDE INJ 40 MG/4 ML VIAL IV PUSH (09:42)
[2021-03-04] MEDS: PANTOPRAZOLE SODIUM IV 40 MG VIAL IV PUSH (10:58)
[2021-03-04] MEDS: SODIUM POLYSTYRENE SULFONONATE 15 GM/60 ML BTL 30 GM FEED TUBE (10:59)
[2021-03-04 11:13] LABS: Triglycerides > 2625 mg/dL (<150)
[2021-03-04 11:50] LABS: Glucose Point of Care 120 mg/dl (65-105)
[2021-03-04] MEDS: CISATRACURIUM BESYLATE 200 MG in SODIUM CHLORIDE 0.9% IV 80 ML 29.67 ML IV CONT (16:04)
[2021-03-04 16:30] LABS: Glucose Point of Care 189 mg/dl (65-105)
--- NOTE | 2021-03-04 17:35 | PM.IMPN ---
Progress Note: A&P Assessment and Plan (1) Acute respiratory failure: Code(s): J96.00 - Acute respiratory failure, unspecified whether with hypoxia or hypercapnia Status: Acute Assessment and Plan: Acute Respiratory failure secondary to COVID-19 pneumonia Patient has gradually worsening hypoxia. 02/28 she was transferred to ICU as she was 15 L nasal cannula and non-rebreather mask. Overnight, She was placed on CPAP due to desaturation. I did a head trial of Airvo but patient did not tolerate it and had to be placed back on CPAP. 03/02 -patient saturating 88 89% on CPAP 15 cm which has been on for close to 36 hours. Patient appeared tired and worn out and in respiratory distress. Patient was intubated 03/03- ET tube was change ABG reviewed-currently on 6 mL/kg tidal volume, rate of 28, peep of 15 and FiO2 of 65%. I will drop FiO2 to 60% and continue to wean permissive hypercapnia Chest x-ray pending 03/02 patient was deemed not a candidate for ECMO due to her high BMI by [facility] P.r.n. bronchodilators Lasix 40 mg IV x1 today (2) COVID-19: Code(s): U07.1 - COVID-19 Status: Acute Assessment and Plan: She is not vaccinated against COVID-19 and now has a COVID 19 pneumonia Continue Dexamethasone but I would change the dose from b.i.d. to q.day since patient has received dexamethasone for more than 10 days now She has completed a 5 day course of remdesivir Received dose of tocilizumab on 02/27 and her CRP has decreased consistently She was started on azithromycin and she will complete a 5 day course today Continue isolation precautions Trend inflammatory markers (3) Pneumonia: Code(s): J18.9 - Pneumonia, unspecified organism Status: Acute Assessment and Plan: see above (4) Hypertension: Code(s): I10 - Essential (primary) hypertension Status: Acute Assessment and Plan: Currently in controlled range as patient is now sedated Norvasc has been discontinued (5) Transaminitis: Code(s): R74.01 - Elevation of levels of liver transaminase levels Status: Acute Assessment and Plan: Elevated liver enzymes likely secondary to fatty liver. Viral hepatitis panel was negative Right upper quadrant ultrasound confirms diagnosis of hepatic steatosis (6) Hyperglycemia: Code(s): R73.9 - Hyperglycemia, unspecified Status: Acute Assessment and Plan: secondary to steroids continue sliding scale insulin Additional Plan DVT prophylaxis -Lovenox BID SUP - PPI Nutrition -tube feeds Code Status - Full Code. States to contact her dad if she is unable to make decisions for herself Total Critical Care Time - 30 minutes Due to a high probability of clinically significant, life threatening deterioration, the patient required my highest level of preparedness to intervene emergently and I personally spent this critical care time directly and personally managing the patient. This critical care time included obtaining a history; examining the patient; pulse oximetry; ordering and review of studies; arranging urgent treatment with development of a management plan; evaluation of patient's response to treatment; frequent reassessment; and discussions with other providers. It was exclusive of separately billable procedures and treating other patients and teaching time. Please see Assessment and Plan section and the rest of the note for further information on patient assessment and treatment Subjective Date/time seen: 03/04/21 17:35 Interval history: This is a 30-year-old female with hypertension Admitted with COVID-19 pneumonia. CTA of the chest showed diffuse lung disease consistent with COVID pneumonia.The patient is unvaccinated for COVID. Review of Systems Review of Systems: All systems reviewed & are unremarkable except as noted in HPI and below (Subjective) ROS unobtainable: Yes unobtainable due to endotracheal tube, u
[2021-03-04] MEDS: CISATRACURIUM BESYLATE 200 MG in SODIUM CHLORIDE 0.9% IV 80 ML 32.64 ML IV CONT (23:05)
[2021-03-05] VITALS (48 sets, daily range): BP systolic 106–137; BP diastolic 57–92; PULSE 80–841; RESP 26–28; TEMP 36.2–36.9; O2SAT 90–95
[2021-03-05] MEDS: FENTANYL 2,500MCG/NS250ML(*CRX 2,500 MCG/250 ML BAG 15 MCG IV CONT ×2 (00:36→17:00)
[2021-03-05] MEDS: PROPOFOL IV EMULSION 100 ML 59.34 MG IV CONT ×5 (00:42→07:27)
[2021-03-05 00:50] LABS: Glucose Point of Care 172 mg/dl (65-105)
[2021-03-05] MEDS: CISATRACURIUM BESYLATE 200 MG in SODIUM CHLORIDE 0.9% IV 80 ML 32.64 ML IV CONT ×5 (02:29→14:25)
[2021-03-05 04:37] LABS: Hematocrit 46.2 % (37.0-47.0); Hemoglobin 15.6 g/dL (12.0-15.0); Mean Corpuscular HGB Conc 33.8 g/dl (32-36); Mean Corpuscular Hemoglobin 30.2 pg (26-34); Mean Corpuscular Volume 89.4 fl (80-100); Mean Platelet Volume 9.4 fl (7.4-10.4); Platelet Count Result 327 k/mm3 (150-375); Red Blood Count 5.17 M/mm3 (4.2-5.4); Red Cell Distribution Width 13.4 % (11.5-14.5)
[2021-03-05 04:59] LABS: Alanine Aminotransferase 172 U/L (4-35); Albumin Level 3.4 g/dL (3.5-5.1); Alkaline Phosphatase 91 U/L (38-126); Anion Gap 0 mmol/L (8-16); Aspartate Amino Transferase 135 U/L (14-36); Bilirubin,Total 0.6 mg/dL (0.2-1.3); Blood Urea Nitrogen 19 mg/dL (7-17); CRP < 0.5 mg/dL (<1.0); Calcium 7.7 mg/dL (8.4-10.2); Carbon Dioxide 36 mmol/L (22-30); Chloride 94 mmol/L (98-107); Estimated CRCL calculation 241 ml/min; Estimated Glomerular Filt Rate > 60; Glucose 141 mg/dL (65-110); Lactate Dehydrogenase 1389 U/L (313-618); Potassium 4.4 mmol/L (3.4-5.0); Sodium 130 mmol/L (137-145)
[2021-03-05 06:01] LABS: Alveolar/Arterial O2 Gradient 205.4 mmHg; Base Excess ABG 6.3 mEq/l (+/-2.0); Carboxyhemoglobin 0.1 % THb (0-2.0); Fractional Inspired Oxygen 50 %; HCO3 ABG 33.4 mEq/l (22.0-26.0); Methemoglobin ABG 0.4 %THb (0-1.5); Oxygen Content ABG 21.2 %vol (16.0-22.0); Oxygen Saturation ABG 96.2 % (95.0-100.0); Oxyhemoglobin 95.4 % THb (90.0-100.0); PCO2 ABG 57.3 mmHg (35.0-45.0); PO2 ABG 86.6 mmHg (80.0-100.0); PO2 FiO2 Ratio Arterial Blood 1.73 %; Reduced Hemoglobin 4.1 %THb (0-5.0); Total Hemoglobin 15.8 g/dL (12.0-18.0); pH ABG 7.383 (7.350-7.450)
[2021-03-05 06:03] LABS: Device VENTILATOR; Modified Allen's Test Pass; Site Drawn RIGHT RADIAL
[2021-03-05 06:04] LABS: Arterial Blood Gas PEEP 15 cmH2O; Arterial Blood Gas Tidal Volume 360 ml; Arterial Blood Gas Vent Mode CMV; Arterial Blood Gas Ventilator rate 28 /MIN
[2021-03-05] MEDS: CENTRAL LINE FLUSH 10 ML IV PUSH ×3 (06:44→21:15)
[2021-03-05] MEDS: ENOXAPARIN 40 MG/0.4 ML SYRINGE SUB-Q ×2 (07:31→21:13)
[2021-03-05] MEDS: PANTOPRAZOLE SODIUM IV 40 MG VIAL IV PUSH (07:32)
[2021-03-05] MEDS: MINERAL OIL/WHITE PETROLATUM OINTMENT 1 APPLIC EACH EYE ×2 (07:32→21:14)
--- NOTE | 2021-03-05 08:08 | WPDINTPN ---
Progress Note: A&P Assessment and Plan (1) Acute respiratory failure: Code(s): J96.00 - Acute respiratory failure, unspecified whether with hypoxia or hypercapnia Status: Acute Assessment and Plan: Acute Respiratory failure secondary to COVID-19 pneumonia Patient has gradually worsening hypoxia. 02/28 she was transferred to ICU as she was 15 L nasal cannula and non-rebreather mask. Overnight, She was placed on CPAP due to desaturation. I did a head trial of Airvo but patient did not tolerate it and had to be placed back on CPAP. 03/02 -patient saturating 88 89% on CPAP 15 cm which has been on for close to 36 hours. Patient appeared tired and worn out and in respiratory distress. Patient was intubated 03/03- ET tube was changed ABG reviewed-currently on 6 mL/kg tidal volume, rate of 28, peep of 15 and FiO2 of 50%. patient is going to be placed in supine position this morning. If oxygenation remains stable, I will decrease PEEP. Tolerate permissive hypercapnia Chest x-ray pending for today 03/02 patient was deemed not a candidate for ECMO due to her high BMI by [facility] P.r.n. bronchodilators (2) COVID-19: Code(s): U07.1 - COVID-19 Status: Acute Assessment and Plan: She is not vaccinated against COVID-19 and now has a COVID 19 pneumonia Continue Dexamethasone q.day for now. She has received dexamethasone b.i.d. for more than 10 days now She has completed a 5 day course of remdesivir Received dose of tocilizumab on 02/27 and her CRP has decreased consistently She was started on azithromycin and she has completed a 5 day course today Continue isolation precautions Trend inflammatory markers (3) Pneumonia: Code(s): J18.9 - Pneumonia, unspecified organism Status: Acute Assessment and Plan: see above (4) Hypertension: Code(s): I10 - Essential (primary) hypertension Status: Acute Assessment and Plan: Currently in controlled range as patient is now sedated Norvasc has been discontinued (5) Transaminitis: Code(s): R74.01 - Elevation of levels of liver transaminase levels Status: Acute Assessment and Plan: Elevated liver enzymes likely secondary to fatty liver. Viral hepatitis panel was negative Right upper quadrant ultrasound confirms diagnosis of hepatic steatosis (6) Hyperglycemia: Code(s): R73.9 - Hyperglycemia, unspecified Status: Acute Assessment and Plan: secondary to steroids continue sliding scale insulin (7) Hypertriglyceridemia: Code(s): E78.1 - Pure hyperglyceridemia Status: Acute Assessment and Plan: patient's triglyceride level was checked yesterday morning but results came back later in the day. Elevated likely secondary to morbid obesity and propofol I will transition patient from propofol to fentanyl infusion and recheck level tomorrow morning Additional Plan DVT prophylaxis -Lovenox BID SUP - PPI Nutrition -tube feeds Code Status - Full Code. States to contact her dad if she is unable to make decisions for herself Total Critical Care Time - 31 minutes Due to a high probability of clinically significant, life threatening deterioration, the patient required my highest level of preparedness to intervene emergently and I personally spent this critical care time directly and personally managing the patient. This critical care time included obtaining a history; examining the patient; pulse oximetry; ordering and review of studies; arranging urgent treatment with development of a management plan; evaluation of patient's response to treatment; frequent reassessment; and discussions with other providers. It was exclusive of separately billable procedures and treating other patients and teaching time. Please see Assessment and Plan section and the rest of the note for further information on patient assessment and treatment Subjective Date/time seen: 03/05/21 08:0
[2021-03-05] MEDS: MIDAZOLAM HCL (*CRX) 2 MG/2 ML VIAL 6 MG IV PUSH (08:09)
[2021-03-05] MEDS: MIDAZOLAM 100MG/NS 100ML(*CRX) 100 MG/100 ML BAG 6 MG IV CONT (08:10)
--- NOTE | 2021-03-05 11:10 | PCFNICU ---
ICU Rounding Note: Pt current nutrition is Jevity 1.2 at 60 ml/hr over 22 hours. Last recorded weight is 190.8 kg. down from 197.8 kg on admit. Bowel Motility:+BM reported 03/02 Labs Reviewed:Cr 0.5,BUN 19, Na 130, Alb 3.1,Hct 15.6 Meds Noted:Versed,Protonix, Decadron, Fentanyl. Skin: Rash-Upper Back. Additional Notes: Patient remains on mechanical vent. Tube feedings of Jevity 1.2 at 60 ml/hr over 22 hours providing 1584 kcals/73 gms protein/1065 ml water. Propofol has been discontinued. Agree with diet orders. Following daily in ICU rounds. Assessing/reassessing every Friday and Friday.
[2021-03-05] MEDS: METOCLOPRAMIDE HCL 10 MG/10 ML SOLN UDC 5 MG FEED TUBE ×2 (11:23→18:03)
[2021-03-05 11:35] LABS: Glucose Point of Care 176 mg/dl (65-105)
--- NOTE | 2021-03-05 15:47 | PM.IMPN ---
Progress Note: A&P Assessment and Plan (1) Acute respiratory failure: Code(s): J96.00 - Acute respiratory failure, unspecified whether with hypoxia or hypercapnia Status: Acute Assessment and Plan: Patient is on ventilator support management as per Critical Care Acute Respiratory failure secondary to COVID-19 pneumonia Patient has gradually worsening hypoxia. 02/28 she was transferred to ICU as she was 15 L nasal cannula and non-rebreather mask. Overnight, She was placed on CPAP due to desaturation. I did a head trial of Airvo but patient did not tolerate it and had to be placed back on CPAP. 03/02 -patient saturating 88 89% on CPAP 15 cm which has been on for close to 36 hours. Patient appeared tired and worn out and in respiratory distress. Patient was intubated 03/03- ET tube was changed ABG reviewed-currently on 6 mL/kg tidal volume, rate of 28, peep of 15 and FiO2 of 50%. patient is going to be placed in supine position this morning. If oxygenation remains stable, I will decrease PEEP. Tolerate permissive hypercapnia Chest x-ray pending for today 03/02 patient was deemed not a candidate for ECMO due to her high BMI by [facility] P.r.n. bronchodilators (2) COVID-19: Code(s): U07.1 - COVID-19 Status: Acute Assessment and Plan: She is not vaccinated against COVID-19 and now has a COVID 19 pneumonia Continue Dexamethasone q.day for now. She has received dexamethasone b.i.d. for more than 10 days now She has completed a 5 day course of remdesivir Received dose of tocilizumab on 02/27 and her CRP has decreased consistently She was started on azithromycin and she has completed a 5 day course today Continue isolation precautions Trend inflammatory markers (3) Pneumonia: Code(s): J18.9 - Pneumonia, unspecified organism Status: Acute Assessment and Plan: see above (4) Hypertension: Code(s): I10 - Essential (primary) hypertension Status: Acute Assessment and Plan: Currently in controlled range as patient is now sedated Norvasc has been discontinued (5) Transaminitis: Code(s): R74.01 - Elevation of levels of liver transaminase levels Status: Acute Assessment and Plan: Elevated liver enzymes likely secondary to fatty liver. Viral hepatitis panel was negative Right upper quadrant ultrasound confirms diagnosis of hepatic steatosis (6) Hyperglycemia: Code(s): R73.9 - Hyperglycemia, unspecified Status: Acute Assessment and Plan: secondary to steroids continue sliding scale insulin (7) Hypertriglyceridemia: Code(s): E78.1 - Pure hyperglyceridemia Status: Acute Assessment and Plan: patient's triglyceride level was checked yesterday morning but results came back later in the day. Elevated likely secondary to morbid obesity and propofol Additional Plan DVT prophylaxis -Lovenox BID SUP - PPI Nutrition -tube feeds Code Status - Full Code. States to contact her dad if she is unable to make decisions for herself Total Critical Care Time - 31 minutes Due to a high probability of clinically significant, life threatening deterioration, the patient required my highest level of preparedness to intervene emergently and I personally spent this critical care time directly and personally managing the patient. This critical care time included obtaining a history; examining the patient; pulse oximetry; ordering and review of studies; arranging urgent treatment with development of a management plan; evaluation of patient's response to treatment; frequent reassessment; and discussions with other providers. It was exclusive of separately billable procedures and treating other patients and teaching time. Please see Assessment and Plan section and the rest of the note for further information on patient assessment and treatment Subjective Date/time seen: 03/05/21 15:47 Interval history: This is
[2021-03-05] MEDS: CISATRACURIUM BESYLATE 200 MG in SODIUM CHLORIDE 0.9% IV 80 ML 29.67 ML IV CONT ×2 (18:06→21:19)
[2021-03-05 18:07] LABS: Glucose Point of Care 185 mg/dl (65-105)
[2021-03-05] MEDS: MIDAZOLAM 100MG/NS 100ML(*CRX) 100 MG/100 ML BAG 8 MG IV CONT (21:11)
[2021-03-06] VITALS (35 sets, daily range): BP systolic 104–141; BP diastolic 56–98; PULSE 75–110; RESP 28; TEMP 37.1–37.3; O2SAT 91–96
[2021-03-06 00:38] LABS: Glucose Point of Care 147 mg/dl (65-105)
[2021-03-06] MEDS: CISATRACURIUM BESYLATE 200 MG in SODIUM CHLORIDE 0.9% IV 80 ML 29.67 ML IV CONT ×2 (00:48→04:13)
[2021-03-06] MEDS: METOCLOPRAMIDE HCL 10 MG/10 ML SOLN UDC 5 MG FEED TUBE ×4 (00:50→17:13)
[2021-03-06] MEDS: CENTRAL LINE FLUSH 10 ML IV PUSH ×3 (05:14→21:43)
[2021-03-06 05:23] LABS: Base Excess ABG 7.2 mEq/l (+/-2.0); Carboxyhemoglobin 0.1 % THb (0-2.0); Fractional Inspired Oxygen 60 %; HCO3 ABG 34.7 mEq/l (22.0-26.0); Methemoglobin ABG 0.4 %THb (0-1.5); Oxygen Saturation ABG 96.8 % (95.0-100.0); Oxyhemoglobin 96.5 % THb (90.0-100.0); PO2 ABG 93.6 mmHg (80.0-100.0); PO2 FiO2 Ratio Arterial Blood 1.56 %; Total Hemoglobin 16.2 g/dL (12.0-18.0); pH ABG 7.379 (7.350-7.450)
[2021-03-06 05:25] LABS: Arterial Blood Gas PEEP 15 cmH2O; Arterial Blood Gas Tidal Volume 360 ml; Arterial Blood Gas Vent Mode CMV; Arterial Blood Gas Ventilator rate 28 /MIN; Device VENTILATOR; Modified Allen's Test Unable to perform; PCO2 ABG 60.2 mmHg (35.0-45.0); Site Drawn RIGHT RADIAL
[2021-03-06 06:46] LABS: Triglycerides 972 mg/dL (<150)
[2021-03-06 06:50] LABS: Glucose Point of Care 145 mg/dl (65-105)
[2021-03-06] MEDS: CISATRACURIUM BESYLATE 200 MG in SODIUM CHLORIDE 0.9% IV 80 ML 26.7 ML IV CONT ×2 (07:29→11:22)
--- NOTE | 2021-03-06 08:39 | PM.IMPN ---
Progress Note: A&P Assessment and Plan (1) Acute respiratory failure: Code(s): J96.00 - Acute respiratory failure, unspecified whether with hypoxia or hypercapnia Status: Acute Assessment and Plan: Acute Respiratory failure secondary to COVID-19 pneumonia. Patient was admitted on 02/24/2021 and gradually had worsening hypoxia. 02/28 she was transferred to ICU as she was 15 L nasal cannula and non-rebreather mask. She was then placed on CPAP and due to desaturation. 03/02 -patient saturating 88 89% on CPAP 15 cm which has been on for close to 36 hours. Patient appeared tired and worn out and in respiratory distress. 03/02-intubated 03/03: ET tube was changed Patient on low tidal volume strategy, peep of 15, 60% FiO2, will decrease PEEP to 14 - patient proned daily. - tolerate permissive hypercapnia Chest x-ray pending for today 03/02 patient was deemed not a candidate for ECMO due to her high BMI by [facility] P.r.n. bronchodilators (2) COVID-19: Code(s): U07.1 - COVID-19 Status: Acute Assessment and Plan: She is not vaccinated against COVID-19 and now has a COVID 19 pneumonia She has received dexamethasone b.i.d. for more than 10 days now She has completed a 5 day course of remdesivir Received dose of tocilizumab on 02/27 and her CRP has decreased consistently She was started on azithromycin and she has completed a 5 day course today Continue isolation precautions Trend inflammatory markers (3) Hypertension: Code(s): I10 - Essential (primary) hypertension Status: Acute Assessment and Plan: Currently in controlled range as patient is now sedated Norvasc has been discontinued (4) Transaminitis: Code(s): R74.01 - Elevation of levels of liver transaminase levels Status: Acute Assessment and Plan: Elevated liver enzymes likely secondary to fatty liver. Viral hepatitis panel was negative Right upper quadrant ultrasound confirms diagnosis of hepatic steatosis (5) Hyperglycemia: Code(s): R73.9 - Hyperglycemia, unspecified Status: Acute Assessment and Plan: secondary to steroids continue sliding scale insulin (6) Hypertriglyceridemia: Code(s): E78.1 - Pure hyperglyceridemia Status: Acute Assessment and Plan: patient's triglyceride level was checked yesterday morning but results came back later in the day. Elevated likely secondary to morbid obesity and propofol Propofol was discontinued -currently on fentanyl and Versed infusion (7) Dietary counseling and surveillance: Code(s): Z71.3 - Dietary counseling and surveillance Status: Acute Assessment and Plan: Tolerating tube feeds -no bowel movements, add MiraLax (8) DVT prophylaxis: Code(s): Z29.9 - Encounter for prophylactic measures, unspecified Status: Acute Assessment and Plan: Continue Lovenox 40 mg Q12H Subjective Date/time seen: Date of Service 03/06/21 08:39 Patient intubated and sedated Review of Systems Review of Systems: ROS unobtainable: Yes unobtainable due to endotracheal tube Exam Narrative: GENERAL: Sedated intubated HEENT: Normocephalic, atraumatic, anicteric NECK: thick CV: Normal S1, S2, RRR, No MRG RESP:coarse breath sounds bilaterally Abdomen: Soft, non-tender, non-distended, +BS EXTREMITIES: Warm and well perfused, no clubbing, cyanosis, or edema. +2 Distal pulses bilaterally. SKIN: warm, dry and intact. NEURO:Intubated, sedated Objective Data Vital Signs Vital Signs: Vital Signs - 24 hr 03/05/21 08:42 03/05/21 09:39 03/05/21 10:00 Temperature Pulse Rate 98 90 95 Respiratory Rate 28 H 28 H 28 H Blood Pressure 124/72 137/92 H Pulse Oximetry 91 03/05/21 10:17 03/05/21 11:05 03/05/21 11:21 Temperature Pulse Rate 96 95 97 Respiratory Rate 28 H 28 H Blood Pressure 132/89 Pulse Oximetry 90 03/05/21 12:00 03/05/21 13:36 03/05/21 14:
[2021-03-06] MEDS: ENOXAPARIN 40 MG/0.4 ML SYRINGE SUB-Q ×2 (08:49→21:42)
[2021-03-06] MEDS: MINERAL OIL/WHITE PETROLATUM OINTMENT 1 APPLIC EACH EYE ×2 (08:50→21:43)
[2021-03-06] MEDS: polyethylene glycoL 3350 17 GM POWD.PACK PO (08:50)
[2021-03-06] MEDS: PANTOPRAZOLE SODIUM IV 40 MG VIAL IV PUSH (08:50)
--- NOTE | 2021-03-06 09:09 | WPDINTPN ---
Progress Note: A&P Assessment and Plan (1) Acute respiratory failure: Code(s): J96.00 - Acute respiratory failure, unspecified whether with hypoxia or hypercapnia Status: Acute Assessment and Plan: Acute Respiratory failure secondary to COVID-19 pneumonia. Patient was admitted on 02/24/2021 and gradually had worsening hypoxia. 02/28 she was transferred to ICU as she was 15 L nasal cannula and non-rebreather mask. She was then placed on CPAP and due to desaturation. 03/02 -patient saturating 88 89% on CPAP 15 cm which has been on for close to 36 hours. Patient appeared tired and worn out and in respiratory distress. 03/02-intubated 03/03: ET tube was changed Patient on low tidal volume strategy, peep of 15, 60% FiO2, will decrease PEEP to 14 - patient proned daily. - tolerate permissive hypercapnia Chest x-ray pending for today 03/02 patient was deemed not a candidate for ECMO due to her high BMI by [facility] bronchodilators (2) COVID-19: Code(s): U07.1 - COVID-19 Status: Acute Assessment and Plan: She is not vaccinated against COVID-19 and now has a COVID 19 pneumonia She has received dexamethasone b.i.d. for more than 10 days now She has completed a 5 day course of remdesivir Received dose of tocilizumab on 02/27 and her CRP has decreased consistently She was started on azithromycin and she has completed a 5 day course today Continue isolation precautions Trend inflammatory markers (3) Pneumonia: Code(s): J18.9 - Pneumonia, unspecified organism Status: Acute Assessment and Plan: see above (4) Hypertension: Code(s): I10 - Essential (primary) hypertension Status: Acute Assessment and Plan: Currently in controlled range as patient is now sedated Norvasc has been discontinued (5) Transaminitis: Code(s): R74.01 - Elevation of levels of liver transaminase levels Status: Acute Assessment and Plan: Elevated liver enzymes likely secondary to fatty liver. Viral hepatitis panel was negative Right upper quadrant ultrasound confirms diagnosis of hepatic steatosis (6) Hyperglycemia: Code(s): R73.9 - Hyperglycemia, unspecified Status: Acute Assessment and Plan: secondary to steroids continue sliding scale insulin (7) Hypertriglyceridemia: Code(s): E78.1 - Pure hyperglyceridemia Status: Acute Assessment and Plan: patient's triglyceride level was checked yesterday morning but results came back later in the day. Elevated likely secondary to morbid obesity and propofol Propofol was discontinued -currently on fentanyl and Versed infusion (8) Dietary counseling and surveillance: Code(s): Z71.3 - Dietary counseling and surveillance Status: Acute Assessment and Plan: Tolerating tube feeds -no bowel movements, add MiraLax (9) DVT prophylaxis: Code(s): Z29.9 - Encounter for prophylactic measures, unspecified Status: Acute Assessment and Plan: Continue Lovenox 40 mg Q12H Additional Plan Father is the POA Code status: Full code Critical care time spent: 36 minutes This dictation may have been done utilizing a voice recognition system. Attempts have been made to correct errors. However, there may be uncorrected grammatical, spelling, and recognition errors present. Due to a high probability of clinically significant, life threatening deterioration, the patient required my highest level of preparedness to intervene emergently and I personally spent this critical care time directly and personally managing the patient. This critical care time included obtaining a history; examining the patient; pulse oximetry; ordering and review of studies; arranging urgent treatment with development of a management plan; evaluation of patient's response to treatment; frequent reassessment; and discussions with other providers. It was exclusive of [facility]
[2021-03-06] MEDS: MIDAZOLAM 100MG/NS 100ML(*CRX) 100 MG/100 ML BAG 8 MG IV CONT ×2 (09:36→21:40)
[2021-03-06] MEDS: FENTANYL 2,500MCG/NS250ML(*CRX 2,500 MCG/250 ML BAG 15 MCG IV CONT (09:37)
--- NOTE | 2021-03-06 11:47 | PCNFU ---
Nutrition Follow-Up Complete: Inadequate Oral Intake as related to mechanical ventilation as evidenced by NPO. Goal: Meet estimated nutritional needs Progressing towards goal. We will continue current goal. Pt current nutrition is Jevity 1.2 at 60 ml/hr over 22 hours. Last recorded weight is 193.2 kg, down from 197.8 kg on admit. Bowel Motility:+BM reported 03/02 Labs Reviewed:TG 972 Meds Noted:Versed, Fentanyl, Protonix, Reglan, Miralax, Lovenox. Skin:Rash-back. Improving. Additional Notes: Mechanical vent. Patient had a residual of 70 ml overall, is tolerating tube feedings of Jevity 1.2 at 60 ml/hr over 22 hours. Tube feedings are providing 1584 kcals/73 gms protein/1065 ml water. Meeting 86% of caloric needs (IBW). Free water flush of 30 ml q 4 hours. Agree with current diet orders. Monitoring: Will monitor every Friday and Friday.
[2021-03-06 12:29] LABS: Glucose Point of Care 190 mg/dl (65-105)
[2021-03-06] MEDS: CISATRACURIUM BESYLATE 200 MG in SODIUM CHLORIDE 0.9% IV 80 ML 23.74 ML IV CONT (15:36)
[2021-03-06 17:23] LABS: Glucose Point of Care 164 mg/dl (65-105)
--- NOTE | 2021-03-06 20:36 | PC.NURSE ---
Updated Dr. Negron regarding bed placement. Okay to place patient supine from prone.
[2021-03-06] MEDS: BUDESONIDE RESPULE NEB 0.5 MG/2 ML AMP INHALATION (20:52)
--- NOTE | 2021-03-06 20:57 | PC.NURSE ---
2005 Report given to Britta RODRÍGUEZ at [facility] Dave Nehemias (father) made aware of transfer. questions asked and answered
--- NOTE | 2021-03-18 21:24 | P.TS_ITS ---
Transfer Discharge Sum: Prov Provider Date of admission: 02/26/21 11:30 Primary care physician: Mariah Loomis MD Admitting clinician: Tee Hogue MD Consults: 03/01/21 Consult to Physician Routine Comment: Consulting Provider: Nnamdi Emmanuel Reason for consultation: icu transfer Has provider been notified: Yes DS: Admitting Diagnosis Discharge Date 03/06/21 Admitting Diagnosis Acute hypoxic respiratory failure DS: Discharge Diagnosis Discharge Diagnosis (1) Acute respiratory failure: Code(s): J96.00 - Acute respiratory failure, unspecified whether with hypoxia or hypercapnia Status: Acute Assessment and Plan: Patient admitted 02/26/2021 with URI symptoms and SOB after a postive home COVID 19 test two days prior to admission. Patient was on 2LNC on admission w/ CT chest consistent with COVID 19 pneumonia. 02/28 patient was transferred to ICU due to increasing oxygen reqirement. Patient was intubated on 03/02/2021. Patient remained intubated and was transferred to [facility]. (2) COVID-19: Code(s): U07.1 - COVID-19 Status: Acute Assessment and Plan: * She reports exposure to COVID-19 and has not been vaccinated against COVID. * Covid test positive * Dexamethasone changed 6mg IV BID and remdesivir day 4, probably needs to be increased to 10 days * Oxygen demand increased to 15L high flow cannula * Continue isolation precautions * Trend inflammatory markers * Azithromycin started * Tocilizumab 800mg IV once * Albuterol inhaler PRN * CTA: No PE noted * IS * Trend SPO2 * Wean oxygen as indicated * Encourage side and prone positioning * LDH 1217, CRP 2.4, Dimer 0.34 * Chest xray: Continued progression/Diffuse PNA * Lovenox 40mg SubQ daily * Continuous Pulsox (3) Hypertension: Code(s): I10 - Essential (primary) hypertension Status: Acute Assessment and Plan: On amlodipine 10 mg po at home. * Current blood pressure is 133/80 * Continue home medications * Trend BP * Adjust medications as needed (4) Transaminitis: Code(s): R74.01 - Elevation of levels of liver transaminase levels Status: Acute Assessment and Plan: * Liver enzymes elevated AST/ALT 124/152 * Trend * Hepatitis panel negative * Consider RUQ ultrasound if indicated (5) Hyperglycemia: Code(s): R73.9 - Hyperglycemia, unspecified Status: Acute Assessment and Plan: Likely 2/2 to dexamethasone. (6) Hypertriglyceridemia: Code(s): E78.1 - Pure hyperglyceridemia Status: Acute Assessment and Plan: This was likely due to propofol (7) Dietary counseling and surveillance: Code(s): Z71.3 - Dietary counseling and surveillance Status: Acute Assessment and Plan: BMI > 50 (8) DVT prophylaxis: Code(s): Z29.9 - Encounter for prophylactic measures, unspecified Status: Acute Assessment and Plan: Enoxaparin Transfer Discharge Sum: Med Medications Active and Home Medications: Home Medications amlodipine 10 mg tablet 10 mg PO HS #90 tablet 10/19/20 [Rx Confirmed 02/24/21] quetiapine 100 mg tablet 200 mg PO HS #14 tablet 10/27/20 [Rx Confirmed 02/24/21] Transfer Discharge Sum: Hosp Hospital Course Hospital course: 30F with a past medical history of HTN and obesity who was exposed to C
--- NOTE | 2021-03-18 21:24 | PM.TDS ---
Transfer Discharge Sum: Prov Provider Date of admission: 02/26/21 11:30 Primary care physician: Mariah Loomis MD Admitting clinician: Tee Hogue MD Consults: 03/01/21 Consult to Physician Routine Comment: Consulting Provider: Nnamdi Emmanuel Reason for consultation: icu transfer Has provider been notified: Yes DS: Admitting Diagnosis Discharge Date 03/06/21 Admitting Diagnosis Acute hypoxic respiratory failure DS: Discharge Diagnosis Discharge Diagnosis (1) Acute respiratory failure: Code(s): J96.00 - Acute respiratory failure, unspecified whether with hypoxia or hypercapnia Status: Acute Assessment and Plan: Patient admitted 02/26/2021 with URI symptoms and SOB after a postive home COVID 19 test two days prior to admission. Patient was on 2LNC on admission w/ CT chest consistent with COVID 19 pneumonia. 02/28 patient was transferred to ICU due to increasing oxygen reqirement. Patient was intubated on 03/02/2021. Patient remained intubated and was transferred to [facility]. (2) COVID-19: Code(s): U07.1 - COVID-19 Status: Acute Assessment and Plan: She reports exposure to COVID-19 and has not been vaccinated against COVID. Covid test positive Dexamethasone changed 6mg IV BID and remdesivir day 4, probably needs to be increased to 10 days Oxygen demand increased to 15L high flow cannula Continue isolation precautions Trend inflammatory markers Azithromycin started Tocilizumab 800mg IV once Albuterol inhaler PRN CTA: No PE noted IS Trend SPO2 Wean oxygen as indicated Encourage side and prone positioning LDH 1217, CRP 2.4, Dimer 0.34 Chest xray: Continued progression/Diffuse PNA Lovenox 40mg SubQ daily Continuous Pulsox (3) Hypertension: Code(s): I10 - Essential (primary) hypertension Status: Acute Assessment and Plan: On amlodipine 10 mg po at home. Current blood pressure is 133/80 Continue home medications Trend BP Adjust medications as needed (4) Transaminitis: Code(s): R74.01 - Elevation of levels of liver transaminase levels Status: Acute Assessment and Plan: Liver enzymes elevated AST/ALT 124/152 Trend Hepatitis panel negative Consider RUQ ultrasound if indicated (5) Hyperglycemia: Code(s): R73.9 - Hyperglycemia, unspecified Status: Acute Assessment and Plan: Likely 2/2 to dexamethasone. (6) Hypertriglyceridemia: Code(s): E78.1 - Pure hyperglyceridemia Status: Acute Assessment and Plan: This was likely due to propofol (7) Dietary counseling and surveillance: Code(s): Z71.3 - Dietary counseling and surveillance Status: Acute Assessment and Plan: BMI > 50 (8) DVT prophylaxis: Code(s): Z29.9 - Encounter for prophylactic measures, unspecified Status: Acute Assessment and Plan: Enoxaparin Transfer Discharge Sum: Med Medications Active and Home Medications: Home Medications amlodipine 10 mg tablet 10 mg PO HS #90 tablet 10/19/20 [Rx Confirmed 02/24/21] quetiapine 100 mg tablet 200 mg PO HS #14 tablet 10/27/20 [Rx Confirmed 02/24/21] Transfer Discharge Sum: Hosp Hospital Course Hospital course: 30F with a past medical history of HTN and obesity who was exposed to COVID 19 by a family member. Patient had URI symptoms plus shortness of breath. She presented to the ED ON 02/26/21 after testing positive for COVID 19 with a home test 2 days prior to presentation. Patient had CT chest consistent wiht COVID 19 pneumonia. She continued to have shortness of breath and increasing oxygen requirement. She was intubated on 03/02/2021. Patient remained intubated and in ICU until transfer to [facility]. Time Spent with Patient Time attestation: Total time spent providing and/or coordinating transfer services: 30 Exam Narrative: GENERAL: Sedated
== END 2021-03-06 23:30 | disposition short-term general hospital (02) | DRG 207 ==
LOC: ANHED 14:08 → ANH3MEDSUR 15:52 → ANHICU 02-28 10:44 → ANH3MEDSUR 03-07 14:40 → ANHICU 03-07 14:40
PROVIDERS: Internal Medicine; Nurse Practitioner; Physician Assistant; Admitting Provider Family Medicine; Emergency Provider Emergency Medicine; PCP Family Medicine; Visit Provider Family Medicine
DX: U07.1 COVID-19 (principal); J12.82 Pneumonia due to coronavirus disease 2019; J96.01 Acute respiratory failure with hypoxia; Z68.44 Body mass index [BMI] 60.0-69.9, adult; Z88.2 Allergy status to sulfonamides; F41.9 Anxiety disorder, unspecified; F32.A Depression, unspecified; I10 Essential (primary) hypertension; R11.2 Nausea with vomiting, unspecified; R74.01 Elevation of levels of liver transaminase levels; R07.9 Chest pain, unspecified; R50.9 Fever, unspecified; K76.0 Fatty (change of) liver, not elsewhere classified; R73.9 Hyperglycemia, unspecified; T38.0X5A Adverse effect of glucocorticoids and synthetic analogues, initial encounter; Y92.230 Patient room in hospital as the place of occurrence of the external cause; E78.1 Pure hyperglyceridemia; E66.01 Morbid (severe) obesity due to excess calories
CPT/HCPCS: 31500; 36415; 36569; 36600; 71045; 71275; 76705; 80053; 80074; 82375; 82728; 82805; 82948; 83050; 83605; 83615; 83735; 83880; 84478; 84484; 85025; 85027; 85380; 85610; 86140; 93005; 94002; 94003; 94640; 94660; 94667; 96361; 96365; 96366; 96367; 96372; 96375; 99285; A9270; C1751; C9113; C9803; G0378; J0131; J0330; J0456; J0461; J0610; J1100; J1650; J1885; J1940; J1956; J2060; J2250; J2405; J2704; J2997; J3010; J7030; J7512; J8540; Q0249; Q9967; U0003; U0005

== ENCOUNTER → 2021-04-09 11:14 | Outpatient (CLI) | payer BC, SELFPAY ==
--- NOTE | ~2021-04-09 | XR_ITS ---
EXAMINATION: XR chest 2V DATE: 04/09/2021 12:04 INDICATION: Unspecified acute lower respiratory infection. TECHNIQUE: Frontal and lateral views of the chest were obtained. COMPARISON: Chest single view 03/06/2021 FINDINGS: There are mild airspace opacities in the lower lung zones. No pleural effusion or pneumotho rax. The heart size is normal. IMPRESSION: 1. Mild airspace opacities in the lower lung zones with interval improvement, consistent with atelect asis/scarring versus pneumonia. Reviewed, dictated and finalized at location [facility]. [facility] REPA[facility] IMPRESSION: 1. Mild airspace opacities in the lower lung zones with interval improvement, c onsistent with atelectasis/scarring versus pneumonia.
== END ==
PROVIDERS: PCP Family Medicine; Visit Provider Physician Assistant
DX: J22 Unspecified acute lower respiratory infection (principal); R91.8 Other nonspecific abnormal finding of lung field
CPT/HCPCS: 71046

== ENCOUNTER 2024-09-01 16:30 | Emergency (ER) | payer BC, SELFPAY ==
[2024-09-01 16:36] VITALS: BP 210/109; PULSE 93; RESP 18; TEMP 37.2; O2SAT 99
--- NOTE | 2024-09-01 17:09 | ED_ITS ---
HPI - Skin/Abscess/Foreign Bdy General Chief complaint: Skin/Abscess/Foreign Body Stated complaint: Skin Sore /Right Leg Time Seen by Provider: 09/01/24 17:10 Source: patient Mode of arrival: ambulatory Limitations: no limitations History of Present Illness HPI narrative: 33-year-old female presented for complaint of a unhealing wound to the right lower inner leg. Onset 1 month. Patient has been picking at the area since onset and has reported some pus draining from the site. She has continued to cleanse the site apply Neosporin with Band-Aid. Last night she applied aloe and reports significant improvement in the appearance today. Denies nausea, vomiting, diarrhea, fevers or chills. Related Data Allergies Allergy/AdvReac Type Severity Reaction Status Date / Time Sulfa (Sulfonamide Allergy Severe Anaphylaxis Verified 09/01/24 16:51 Antibiotics) cefprozil Allergy Intermediate Muscle Pain Verified 09/01/24 16:51 Review of Systems Review of Systems: CONSTITUTIONAL: Denies body aches, fever, chills, or sweats. EYES: Denies visual changes, redness, or discharge. ENT: Denies rhinorrhea, congestion CARDIOVASCULAR: Denies chest pain, palpitations, or edema. RESPIRATORY: Denies cough or dyspnea. GASTROINTESTINAL: Denies abdominal pain, nausea, vomiting, or diarrhea. SKIN: per HPI MUSCULOSKELETAL: Denies back pain, joint pain, or myalgia. NEUROLOGIC: Denies headache, numbness, tingling, or weakness. [facility] Past Medical History Medical History Dietary counseling and surveillance DVT prophylaxis Acute respiratory failure COVID-19 Pneumonia Hypertension Chest pain Dyspnea Hypoxia Pneumonia due to COVID-19 virus Morbid obesity with BMI of 50.0-59.9, adult Obstruction of right ureteropelvic junction (UPJ) due to stone Anxiety Nephrolithiasis Sepsis Pyelonephritis Depression Right arm fracture Closed fracture of phalanx of right little finger Kidney stones Surgical History Surgical History History of cystoscopy History of ureter stent History of tonsillectomy History of arthroscopy of right shoulder History of myringotomy History of removal of ureteral stent History of cholecystectomy History of extraction of renal calculus Family History Family History Sibling Asthma Father Diabetes mellitus Mother Hypertension Family history of arthritis Family history of cardiovascular disease Family history of malignant neoplasm Family history of mental disorder Mother No problems noted. Father Patient's father is in good health Grandparent Family history of malignant neoplasm of breast Family history of type 2 diabetes mellitus Social History Social History Social History: Surrogate decision maker: Taylor Pettit, mother. Code status: Full code. Smoking status: Never smoker Second hand tobacco smoke exposure: No Alcohol intake: never Substance use: never Substance use type: does not use Lack of Transportation: No Lack of Food: Never True Current Housing: I Have Housing Concerned About Future Housing: No Difficulty Paying Gas/Electric Bills: No Difficulty Paying for Meds: No Currently Unemployed: No Education: Bachelor's Degree Difficulty w/ Childcare or Family Care: No Additional living arrangements comments: The patient lives in [place] with her boyfriend. Additional occupation/education comments: Works for an [employer]. Spiritual care concerns: No Agree to blood products: Yes Comments At time of signature, I have reviewed and agree with nursing past medical, surgical, social and family history unless otherwise noted. Please see nursing chart for further information. There is no relevant family history pertinent to the presenting complaint Exam Narrative: GENERAL: Well-appearing HEAD: Normocephalic, atraumatic. EYES: conjunctivae clear, and EOMI. ENT: Mucous membranes moist. Oropharynx without edema, erythema or lesions. NECK: Supple. No lymphadenopathy CHEST: Clear to auscultation. HEART: Regular rate and rhythm. SKIN: Warm, dry. Right medial lower leg with erythematous ulcerated lesion [id number], draining serosanguineous fluid manually expelled. Surrounding erythema approx [id number]. NEURO: Alert and oriented x3. Course Course Emergency Course: Patient is aware of diagnosis, understands and agrees to treatment plan. Anticipatory guidance given. Patient agrees to follow-up as directed and is aware of reasons to seek care at the emergency department. Portions of this record may have been created with voice recognition software Level of Care: Express Care Visit Vital Signs Vital signs: Vital Signs Temperature 99 F 09/01/24 16:36 Pulse Rate 93 09/01/24 16:36 Respiratory Rate 18 09/01/24 16:36 Blood Pressure 210/109 H 09/01/24 16:36 Pulse Oximetry 99 09/01/24 16:36 Oxygen Delivery Room Air 09/01/24 16:36 Temperature 99 F 09/01/24 16:36 Pulse Rate 93 09/01/24 16:36 Respiratory Rate 18 09/01/24 16:36 Blood Pressure 210/109 H 09/01/24 16:36 Pulse Oximetry 99 09/01/24 16:36 Oxygen Delivery Room Air 09/01/24 16:36 Reviewed MDM - Skin/Abscess/Foreign Bdy MDM Narrative Medical decision making narrative: Discussed physical exam findingsConsistent with open abscess and mild surrounding cellulitis. Wound was cleansed with skin integrity and a Band-Aid with Neosporin was applied. Patient is advised close follow-up with PCP. Reviewed RX. Advised supportive measures and signs/symptoms to go to the ER. Pt is appropriate for outpt treatment and f/u. Differential Diagnosis Differential diagnosis: Likely abscess of skin or subcutaneous tissue, viral exanthem, dermatophytosis, urticaria, herpes zoster, cellulitis, eczema, insect bites, impetigo and contact dermatitis Discharge Plan Discharge Clinical Impression: Abscess of skin or subcutaneous tissue Patient Disposition: Home Condition: Stable Instructions: Antibiotic Form, Cellulitis (ED), Abscess (ED), Hypertension (ED) Additional Instructions: Keep the area clean and dry - cleanse at least daily with wound spray or warm water and mild soap and allow to fully dry. Ok to apply neosporin to the site Keep it covered while draining; leave it open to the air when possible and not at risk for contamination Take antibiotic as directed Elevate the right leg to reduce swelling Tylenol as needed for pain Watch for worsening symptoms including pain, redness, swelling, streaking, pus/drainage, fever. Go to the ER with any of these symptoms or concerns. Follow up with primary care provider in 1-2 weeks as needed. Patient Language: Kuwaiti Prescriptions: New cephalexin 500 mg capsule 500 mg PO Q6H 7 Days Qty: 28 0RF doxycycline hyclate 100 mg tablet 100 mg PO BID 7 Days Qty: 14 0RF No Action quetiapine 100 mg tablet 200 mg PO HS Qty: 180 3RF amlodipine 10 mg tablet 10 mg PO HS Qty: 90 3RF Zepbound 5 mg/0.5 mL pen injector 5 mg subcut WEEKLY Qty: 2 0RF Follow-up/Referrals: Mariah Loomis MD [Primary Care Provider] - Time of Disposition: 17:20
== END 2024-09-01 17:25 | disposition home or self-care (01) ==
PROVIDERS: Emergency Provider Nurse Practitioner Family; PCP Family Medicine
DX: L02.415 Cutaneous abscess of right lower limb (principal); E66.01 Morbid (severe) obesity due to excess calories; Z68.45 Body mass index [BMI] 70 or greater, adult
CPT/HCPCS: 99213; G0463